=== PATIENT | male | born 1950 | race Caucasian/White ===

== ENCOUNTER 2019-06-05 21:56 | Inpatient (IN) | payer MEDICARE ==
[~2019-06-05] VITALS: Ht 182.9 cm; Wt 99.6 kg
--- NOTE | ~2019-06-05 | HEMODYNAMI ---
PATIENT:OSIRIS HECK MEDICAL RECORD: [id number] : 46 LOCATION:[address] ADMISSION DATE: 06/06/19 Generatedon:06/08/201912:02 Patient name: OSIRIS HECK Patient #: [id number] SSN: : 1950 Date of study: 06/08/2019 Page: Of Hemodynamic Procedure Report Patient Data Patient Demographics Procedure consent was obtained First Name: OSIRIS Gender: Male Last Name: MARIA R : 1950 Patient #: [id number] Age: 68 year(s) Race: Unknown Additional ID: [id number] Contact details Address: [address] [place] [address] State: [place] City: [place] Zip code: [address] Past Medical History Allergies: No known allergies Admission Admission Data Admission Date: 06/06/2019 Admission Time: 0:50 Room #: 210 Height (in.): 72 BSA: 2.26 (m2) Height (cm.): 182.88 BMI: 31.06 (kg/m2) Weight (lbs.): 229 Weight (kg.): 103.87 Procedure Procedure Types Cath Procedure Peripheral Cath Diagnostic Procedure Patient Registration Clerk Peripheral Procedures Venography IVC/SVC Inferior Venacava Filter Procedure Description Procedure Date Procedure Date: 06/08/2019 Procedure Start Time: 11:32 Procedure Staff Name Function Marty Worley MD Performing Physician Jessica Barron RT Senior Process Control Tech Jocelyne Obrien RN Nurse Rafal Fernandez RT Scrub Procedure Data Cath Procedure Fluoroscopy Diagnostic fluoroscopy Total fluoroscopy Time: 1.2 time: 1.2 min min Diagnostic fluoroscopy Total fluoroscopy dose: 251 dose: 251 mGy mGy Contrast Material Contrast Material Type Amount (ml) Isovue 300 35 Diagnostic catheters Device Type Used For End Catheter Placement [facility] Pigtail VESSEL SIZING 5Fr 65CM catheter ([id number]) Procedure Medications Medication Administration Route Dosage Heparin Flush Bag added to field 2 bags (1000units/500ml NS) Lidocaine 1% added to field 20 Benadryl I.V. 25 mg Fentanyl I.V. 50 mcg Fentanyl I.V. 50 mcg Hemodynamics Rest BSA: 2.26 (m2) O2 Consumption: Estimated: 275.24 (ml/min) O2 Consumption indexed : Estimated:121.79 (ml/min/m) Heart Rate: 86 (bpm) Snapshots Pre Cath Intra NCS Post Cath Vital Signs Time Heart Resp SPO2 etCO2 NIBP (mmHg) Rhythm Pain Sedation Rate (ipm) (%) (mmHg) Status Level (bpm) 11:13:00 81 24 97 14.8 126/80(95) NSR 0 (11) 10(A) , No pain 11:17:08 85 24 98 10.4 121/88(97) NSR 0 (11) 10(A) , No pain 11:21:18 88 24 97 0 125/76(99) NSR 0 (11) 10(A) , No pain 11:25:28 84 28 98 0.7 123/81(97) NSR 0 (11) 10(A) , No pain 11:29:38 83 26 98 17.1 123/78(92) NSR 0 (11) 10(A) , No pain 11:33:46 85 23 98 13.4 127/81(101) NSR 0 (11) 10(A) , No pain 11:37:57 83 18 96 11.9 128/75(98) NSR 0 (11) 10(A) , No pain 11:42:07 90 18 97 10.4 124/85(96) NSR 0 (11) 10(A) , No pain 11:46:17 83 18 97 0 125/80(96) NSR 0 (11) 10(A) , No pain 11:50:27 83 18 99 0 122/80(96) NSR 0 (11) 10(A) , No pain 11:54:35 83 20 97 7.4 123/82(101) NSR 0 (11) 10(A) , No pain 11:58:43 89 20 99 0 127/81(98) NSR 0 (11) 10(A) , No pain Medications Time Medication Route Dose Verified Delivered Reason Notes Effe ctiveness by by 11:14:25 Heparin Flush added 2 Marty Ferguson used for Bag to bags Brunilda Worley MD procedure (1000units/500ml field PARKER NS) 11:14:37 Lidocaine 1% added 20ml Marty Ferguson for local to vial Brunilda Worley MD anesthetic field PARKER 11:22:47 Benadryl I.V. 25 mg Marty Casanova Per Micah Worley RN physician 11:26:34 Fentanyl I.V. 50 Marty Casanova Per mcg Micah Worley RN physician 11:38:03 Fentanyl I.V. 50 Marty Casanova Per mcg Micah Worley RN physician Procedure Log Time Note 10:30:42 Patient Height : 72 inches 10:30:53 Patient Weight : 229 lbs 10:32:27 Use device set IR Diagnostic 10:33:03 Micropuncture VSI 4FR kit opened to sterile field. 10:33:06 DOC .035 wire (H52190) opened to sterile field. 10:33:07 Tegaderm 4 x 4 (1626W) opened to sterile field. 10:33:08 Sterile Angiographic Pack opened to sterile field. 10:33:08 Bag Decanter (2002S) opened to sterile field. 10:33:09 ACIST Manifold (48369) opened to sterile field. 10:33:10 ACIST Hand Control (40803) opened to sterile field. 10:33:11 ACIST Syringe (21670) opened to sterile field. 11:01:54 - 11:01:58 Time tracking: Regular hours (M-F 7:00 - 5:00) 11:02:16 Plan of Care:Hemodynamics will remain stable., Cardiac rhythm will remain stable., Comfort level will be maintained., Respiratory function will remain adequate., Patient/ family verbilizes understanding of procedure., Procedure tolerated without complication., Recovers from procedure without complications.. 11:03:09 Patient received from Med II to IR Alert and oriented. Tansferred to table in Supine position. 11:03:11 Signed procedure consent form obtained from patient. 11:03:17 H&P Date Dictated: 06/08/2019 Within 30 days and on chart.. 11:03:19 Pre-procedure instructions explained to patient. 11:03:20 Pre-op teaching completed and patient verbalized understanding. 11:03:22 Family in waiting room. 11:03:24 Patient NPO since Breakfast. 11:03:35 Patient allergic to No known allergies 11:03:39 Is the patient allergic to Iodine/contrast media? No. 11:03:43 Is patient on blood thinner?Yes 11:03:49 ACC The patient was administered the following blood thiners within the last 24 hours: ACCHeparin 11:03:52 Patient diabetic? No. 11:03:56 - 11:03:58 ----Pre-sedation anethsthesia assessment.---- 11:04:03 Previous problem with sedation/anesthesia? No ? 11:04:08 Snore? Yes 11:04:13 Sleep apnea? No 11:04:15 Deviated septum? No 11:04:18 Opens mouth fully? Yes 11:04:20 Sticks out tongue? Yes 11:04:23 Airway obstruction? No ? 11:04:33 Dentures? Yes secured 11:04:44 IV patent on arrival in right forearm with D5/.45%NaCl at KVO. 11:04:54 Right neck area was prepped with chlora-prep and draped in sterile fashion 11:04:57 - 11:11:56 Vital chart was started 11:11:57 Baseline sample Acquired. 11:14:25 Heparin Flush Bag (1000units/500ml NS) 2 bags added to field was administered by Marty Worley MD; used for procedure; Verbal order read back and verified. 11:14:37 Lidocaine 1% 20ml vial added to field was administered by Marty Worley MD; for local anesthetic; Verbal order read back and verified. 11:22:47 Benadryl 25 mg I.V. was administered by Jocelyne Obrien RN; Per physician ; Verbal order read back and verified. 11:26:17 TUBING Contrast Injection High Pressure ([id number]) opened to sterile field. 11:26:34 Fentanyl 50 mcg I.V. was administered by Jocelyne Obrien RN; Per physician; Verbal order read back and verified. 11:31:20 A [employer] [facility] Pigtail VESSEL SIZING 5Fr 65CM catheter ([id number]) was advanced over the wire and used for . 11:32:07 - 11:32:12 Physician arrived 11:32:12 --------ALL STOP TIME OUT------ 11:32:13 Final Timeout: patient, procedure, and site verified with staff and physician. All members of the team are in agreement. :34 Procedure started. ::34 Full Disclosure recording started 11:32:42 Local anesthetic to right IJ vein with Lidocaine 1% by Marty Worley MD.INITIAL ACCESS ONLY 11:32:45 - 11:32:56 Fire Safety Assessment: A--An alcohol-based skin anteseptic being used preoperatively., C--Open oxygen or nitrous oxide is being used. 11:33:03 3a) 45-59 Moderately reduced kidney function. 11:38:03 Fentanyl 50 mcg I.V. was administered by Jocelyne Obrien RN; Per physician; Verbal order read back and verified. 11:46:55 AMPLATZ Super stiff 180cm wire ([id number]) opened to sterile field. 11:49:32 FILTER Lesli Jugular Vena Cava (TG981P) opened to sterile field. 11:49:43 Venogram performed 11:49:44 Venogram performed 11:49:50 [place] Jugular IVC filter was placed below renal veins. 11:54:05 Procedure ended.(Physican Out) 11:54:36 Fluoroscopy time 01.20 minutes. 11:54:42 Fluoroscopy dose: 251 mGy 11:54:42 Flurop Dose total: 251 11:54:49 Contrast amount:Isovue 300 35ml. 11:54:52 Procedure and supply charges have been captured, reviewed, submitted an d are correct. 11:55:31 Report given to ActionPlanner. 12:02:27 Vital chart was stopped Device Usage Item Name Manufacture Quantity Catalog Hospital Part Current Minima l Lot# / Number Charge Number Stock Stock Serial# Code Micropuncture VSI VASCULAR 1 7266V 013736 039943 5 VSI 4FR kit SOLUTIONS DOC .035 wire Cook Medical 1 [id number] 970069 149845 5 ([id number]) Tegaderm 4 x 3M 1 1626W 698568 023838 782405 5 4 (1626W) Sterile Cardinal 1 [id number] 068675 812126 5 Angiographic Health Pack Bag Decanter Microtek 1 2001S 243485 51422 906160 5 (2001S) Medical Inc. ACIST Acist 1 63232 870331 863524 708015 5 Manifold Medical (89487) Systems Inc ACIST Hand Acist 1 73470 532524 654684 885091 5 Control Medical (11369) Systems Inc ACIST Syringe Acist 1 30926 824810 167892 509038 20 (08495) Medical Systems Inc TUBING [facility] 1 JOK442P 173964 252932 355519 5 Contrast Medical Injection High Pressure (EYZ713O) Merit UHF Merit 1 7602-20M65 356506 162972 5 Pigtail Medical VESSEL SIZING 5Fr 65CM catheter ([id number]) AMPLATZ Super Harper 1 [id number] 506466 761994 829693 5 stiff 180cm Scientific wire ([id number]) FILTER [place] Bard 1 DE835N 406828 617442 347213 5 Jugular Vena Cava (SI241H) Signature Audit [place] Stage Time Signature Unsigned Intra-Procedure 06/08/2019 Jessica Barron 12:02:24 PM RT(R) [address] [address] [place] [address]
[2019-06-05] MEDS ORDERED: ZYLOPRIM100 MG PO (22:28)
[2019-06-05] MEDS ORDERED: PLAVIX75 MG PO (22:28)
[2019-06-05] MEDS ORDERED: [UNRECOGNIZED DRUG - REMARK] (22:28)
[2019-06-05] MEDS ORDERED: PROTONIX40 MG PO (22:29)
[2019-06-05 22:31] LABS: BASOPHILS 0.1 % (0-2); EOSINOPHILS 0.2 % (0-7); HEMATOCRIT 36.3 % (42.0-54.0); HEMOGLOBIN 11.4 g/dL (13.5-17.5); IMMATURE GRANULOCYTES 0.3 % (0-5); LYMPHOCYTES 13.2 % (15-50); MCH 29.9 pg (26.0-34.0); MCHC 31.4 g/dL (31.0-37.0); MCV 95.3 fL (80.0-100.0); MONOCYTES 10.2 % (2-11); PLATELET COUNT 234 10x3/uL (130-400); RBC 3.81 10x6/uL (4.20-6.10); RDW 18.3 % (11.5-14.5); WBC 9.8 10x3/uL (4.8-10.8)
[2019-06-05 22:44] LABS: CALC OSMOLALITY 279 mosm/kg (275-300); CALCIUM 8.7 mg/dL (8.5-10.1); CARBON DIOXIDE 26.1 mmol/L (21.0-32.0); CHLORIDE - SERUM 102 mmol/L (98-107); CREATININE - SERUM 1.2 mg/dL (0.6-1.3); GLUCOSE 122 mg/dL (74-106); POTASSIUM - SERUM 4.2 mmol/L (3.5-5.1); SODIUM 138 mmol/L (136-145); UREA NITROGEN 22 mg/dL (7-18); eGFR NON AFRICAN AMERICAN 64 mL/min (90-120)
--- NOTE | 2019-06-05 22:52 | NUR ---
US TO ROOM AT PRESENT
[2019-06-05 22:53] VITALS: BP 140/94
[2019-06-05 22:57] LABS: APTT 31.8 SECONDS (22.8-39.4); INR 1.37 (0.85-1.17); PROTIME 16.3 SECONDS (11.6-15.0)
[2019-06-05 23:04] LABS: ALBUMIN 2.6 g/dL (3.4-5.0); ALKALINE PHOSPHATASE 91 U/L (46-116); ALT (SGPT) 37 U/L (10-68); BILIRUBIN - TOTAL 0.49 mg/dL (0.2-1.3); CKMB 0.2 U/L (0.0-3.6); CREATINE KINASE 39 UL (21-232); D-DIMER-QUANTITATIVE 13.14 ug/mLFEU (0.20-0.54); PRO BNP 163 pg/mL (0-125); TROPONIN-I < 0.017 ng/mL (0.000-0.060); URIC ACID 5.3 mg/dL (2.6-7.2)
--- NOTE | 2019-06-05 23:13 | NUR ---
ULTRASOUND OUT OF PT ROOM. NO ACUTE DISTRESS NOTED AT PRESENT. FAMILY AT BEDSIDE
[2019-06-05 23:35] LABS: ERYTHROCYTE SEDIMENTATION RATE 68 mm/hr (0-20)
[2019-06-06] VITALS (7 sets, daily range): BP systolic 118–151; BP diastolic 77–94; BMI 31.7; BMI 31.6
[2019-06-06] MEDS ORDERED: MIRALAX17 GM PO (02:06)
--- NOTE | 2019-06-06 02:41 | NUR ---
PT ARRIVED TO FLOOR VIA [facility] WITH AND DUAGHTER. PT ALERT AND ORIENTED X4. RR EVEN AND UNLABORED. PT WASN'T ABLE TO TRANSFER ON OWN, WE THE STAFF TRANSFERED THE PT TO BED FROM [facility]. BOTH PT LEGS BILAT ARE SWOLLEN AND PAINFUL. PRN PAIN MED GIVEN. PT MEDS REC'D. NO TELEMETRY AVAILABLE AT THIS TIME. PT ARRIVED ON HEPARIN DRIP AT 13/HR. STARTING WITH A 5000UNIT BOLUS IN ER. PT RESTING COMFORTABLY AT THIS TIME WITH AT BEDSIDE. BED LOW CALL LIGHT WITHIN REACH. WILL CINTINUE TO MONITOR.
[2019-06-06 05:28] LABS: BASOPHILS 0.1 % (0-2); EOSINOPHILS 0.1 % (0-7); HEMATOCRIT 33.9 % (42.0-54.0); IMMATURE GRANULOCYTES 0.2 % (0-5); MCH 30.7 pg (26.0-34.0); MCHC 32.4 g/dL (31.0-37.0); MCV 94.7 fL (80.0-100.0); MEAN PLATELET VOLUME 9.4 fL (7.4-10.4); MONOCYTES 8.4 % (2-11); NEUTROPHILS 78.2 % (40-80); PLATELET COUNT 247 10x3/uL (130-400); RBC 3.58 10x6/uL (4.20-6.10); RDW 18.2 % (11.5-14.5); WBC 9.6 10x3/uL (4.8-10.8)
[2019-06-06 05:49] LABS: ALBUMIN 2.4 g/dL (3.4-5.0); BILIRUBIN - TOTAL 0.45 mg/dL (0.2-1.3); CALCIUM 8.7 mg/dL (8.5-10.1); CARBON DIOXIDE 25.2 mmol/L (21.0-32.0); CREATININE - SERUM 1.1 mg/dL (0.6-1.3); POTASSIUM - SERUM 4.2 mmol/L (3.5-5.1); PROTEIN - SERUM 6.7 g/dL (6.4-8.2)
--- NOTE | 2019-06-06 07:24 | NUR ---
PT RESTING PEACEUFLLY ON HIS BACK, BREATHS EVEN/REGULAR AND UNLABORED. NO SIGNS/SYMPTOMS OF ACUTE DISTRESS NOTED AT THIS TIME. 2 FAMILY MEMBERS AT BEDSIDE, BOTH AWAKE. NO COMPLAINTS OR CONCERNS STATED, ALL QUESTIONS ANSWERED TO THE BEST OF MY ABILITY. CL IN REACH, SRX2.
[2019-06-06 08:05] LABS: INR 1.35 (0.85-1.17); PROTIME 16.1 SECONDS (11.6-15.0)
[2019-06-06 08:11] LABS: APTT 76.3 SECONDS (22.8-39.4)
[2019-06-06 12:57] LABS: % SATURATION 8 % (15-55); IRON 12 ug/dl (35-150); TOTAL IRON BIND CAPACITY 141 ug/dl (260-445); UNSAT IRON BIND CAPACITY 129 ug/dl (150-375)
--- NOTE | 2019-06-06 14:22 | NUR ---
PT HAS BEEN RESTING PEACEUFLLY, ADMINISTERED PAIN MEDICATIONS ONE TIME PER HIS REQUEST. LEGS APPEAR NO SMALLER THAN PREVIOUSLY. NO COMPLAINTS OR CONCERNS AT THIS TIME. AT BEDSIDE. CL IN REACH, SRX2.
--- NOTE | 2019-06-06 17:28 | NUR ---
I have reviewed this patient and I concur with the Shift Assessment completed by the Licensed Practical Nurse today this shift.
--- NOTE | 2019-06-06 18:29 | NUR ---
PT RESTING PEACEFULLY. C/O PAIN IN HIS LEGS, BUT STATES IT'S NOT THAT BAD IF HE ISNT JOSTLED AROUND. NO COMPLAINTS, ANSWERED ALL QUESTIONS TO THE BEST OFMY ABILITY. CL IN REACH, SRX2.
--- NOTE | 2019-06-06 19:16 | NUR ---
EVENING ROUNDS COMPLETE. PT LAYING IN BED, C/O BEING TOO HOT. PT FEVER OF 101.8, PRN TYLENOL GIVEN, COVERS REMOVED. PT IS AAOX4, FAMILY AT BEDSIDE. NO S/S OF DISTRESS. CL IN REACH, BED IN LOWEST POSITION.
--- NOTE | 2019-06-06 22:34 | NUR ---
PT IV TO LAC INFILTRATED. D/C'D IV WITH TIP INTACT. PT TOLERATED WELL. NEW IV STARTED IN LFA 22G X2 ATTEMPTS. PT TOLERATED WELL. HEPARIN INFUSING AT 13 ML/HR.
[2019-06-07 04:52] VITALS: BP 117/74
[2019-06-07 04:52] LABS: BASOPHILS 0.1 % (0-2); EOSINOPHILS 0.1 % (0-7); HEMATOCRIT 33.6 % (42.0-54.0); HEMOGLOBIN 10.6 g/dL (13.5-17.5); IMMATURE GRANULOCYTES 0.2 % (0-5); LYMPHOCYTES 10.8 % (15-50); MCH 30.1 pg (26.0-34.0); MCHC 31.5 g/dL (31.0-37.0); MCV 95.5 fL (80.0-100.0); MEAN PLATELET VOLUME 9.3 fL (7.4-10.4); MONOCYTES 7.7 % (2-11); NEUTROPHILS 81.1 % (40-80); PLATELET COUNT 259 10x3/uL (130-400); RBC 3.52 10x6/uL (4.20-6.10); RDW 18.3 % (11.5-14.5); WBC 10.7 10x3/uL (4.8-10.8)
[2019-06-07 05:26] LABS: ALBUMIN 2.2 g/dL (3.4-5.0); ANION GAP 10.7 mmol/L (8-16); BILIRUBIN - TOTAL 0.5 mg/dL (0.2-1.3); CALCIUM 8.8 mg/dL (8.5-10.1); CARBON DIOXIDE 28.4 mmol/L (21.0-32.0); CREATININE - SERUM 1.1 mg/dL (0.6-1.3); POTASSIUM - SERUM 4.1 mmol/L (3.5-5.1); PROTEIN - SERUM 6.8 g/dL (6.4-8.2)
--- NOTE | 2019-06-07 07:12 | NUR ---
PT AWAKE AND ORIENTED, GROANING IN PAIN. PT STATES THAT EVER SINCE THE NIGH SHIFT CAHNGED HIS LINNENS AND CLEANED HIM UP, HIS LEFT LEG HAS HURT VERY BADLY. STATES PAIN IS BEHIND HIS LEFT KNEE AND THAT THE MORPHINE HE RECIEVED EARLIER DID NOT HELP MUCH IT USUALLY DOES. HE STATES IT IS A CRAMPING TYPE PAIN. WILL REPORT TO . NO OTHER CMPLAINTS OR CONCERNS, ALL QUESTIONS ANSWERED TO THE BEST OF MY ABILITY. DAUGHTER AT BEDSIDE, SON IN LAW IN ROOM. CL IN REACH, SRX2
[2019-06-07 07:58] VITALS: BP 133/84
--- NOTE | 2019-06-07 10:39 | NUR ---
20 GAUGE IV PLACED TO RIGHT WRIST X 1 STICK, GOOD BLOOD RETURN, EASY FLUSH. TAPED, DATED AND SECURED. PATIENT TOLERATED IV PLACEMENT WELL.
[2019-06-07 11:59] VITALS: BP 95/64
--- NOTE | 2019-06-07 13:50 | NUR ---
I have reviewed this patient and I concur with the Shift Assessment completed by the Licensed Practical Nurse today this shift.
--- NOTE | 2019-06-07 14:30 | NUR ---
REPOSTIONED PT, NOTABLE SMALL SORE DEVELOPING ON COXIX, BUTTOX IS GENERALIZED RED.
--- NOTE | 2019-06-07 15:12 | MORECARE ---
CASE MANAGEMENT DISCHARGE SUMMARY PATIENT: OSIRIS HECK UNIT: [id number] ADM DATE: 06/06/19 AGE: 68 : 48 SEX: M ROOM/BED: D.2101 AUTHOR: MANDY CHEN PHYSICIAN: REFERRING PHYSICIAN: JANES CARREON MD DATE OF SERVICE: 06/07/19 Discharge Plan Patient Name: OSIRIS HECK Facility: [facility]:[place] : 1950 Planned Disposition: Anticipated Discharge Date: Discharge Date: Expected LOS: Initial Reviewer: [email or web address] Initial Review Date: 06/07/2019 Generated: 06/07/19 4:12 pm Comments DCP- Discharge Planning Updated by [email or web address]: Carleen Hawkins on 06/07/19 2:[address] Patient Name: OSIRIS HECK Admission Status: ER Accout number: [id number] Admission Date: 06-06-2019 : 1950 Admission Diagnosis: Attending: JANES COREAS Current LOS: 1 Anticipated DC Date: Planned Disposition: Primary Insurance: HU[employer]NA CHOICE PPO MCR ADVANT Discharge Planning Comments: CM met with patient at bedside after explaining CM role and obtaining verbal consent. I SPOKE WITH PATIENT AND HIS NAA. PLAN IS FOR SNF AT [facility]. CURRENTLY HAS [facility] BUT THINKS HE NEEDS SNF. CM TO FOLLOW AND ASSIST. And Taxi Instructor Bus Trolley: Carleen Hawkins DCPIA - Discharge Planning Initial Assessment Updated by [email or web address]: Carleen Hawkins on 06/07/19 3:10 pm * Is the patient Alert and Oriented? Yes * PCP [facility] * Pharmacy [facility] * Preadmission Environment Home with Family * ADLs Independent * Other Equipment WALKER * Community resources currently utilized Home Health * Please name any agencies selected above. [facility] [place] * Additional services required to return to the preadmission environment? No * Can the patient safely return to the preadmission environment? Yes * Has this patient been hospitalized within the prior 30 days at any hospital? No Patient Name: OSIRIS HECK Page 74731 at 1512 All edits/amendments must be made on the electronic document DICTATION DATE: 06/07/191511 INTEGRATION ANALYST: OPAL 06/07/191511 RPT#: [id number] DC DATE: STATUS: ADM IN [facility] [address] [place] [address] END OF REPORT
--- NOTE | 2019-06-07 15:20 | MORECARE ---
CASE MANAGEMENT DISCHARGE SUMMARY PATIENT: OSIRIS EHCK UNIT: [id number] ADM DATE: 06/06/19 AGE: 68 : 48 SEX: M ROOM/BED: D.2101 AUTHOR: APRIL,DOC PHYSICIAN: REFERRING PHYSICIAN: JANES CARREON MD DATE OF SERVICE: 06/07/19 Discharge Plan Patient Name: OSIRIS HECK Facility: [facility]:[place] : 1950 Planned Disposition: Anticipated Discharge Date: Discharge Date: Expected LOS: Initial Reviewer: [email or web address] Initial Review Date: 06/07/2019 Generated: 06/07/19 4:19 pm Comments DCP- Discharge Planning Updated by [email or web address]: Carleen Hawkins on 06/07/19 2:[address] Patient Name: OSIRIS HECK Admission Status: ER Accout number: [id number] Admission Date: 06-06-2019 : 1950 Admission Diagnosis: Attending: JANES COREAS Current LOS: 1 Anticipated DC Date: Planned Disposition: Primary Insurance: HUMANA CHOICE PPO MCR ADVANT Discharge Planning Comments: CM met with patient at bedside after explaining CM role and obtaining verbal consent. I SPOKE WITH PATIENT AND HIS NAA. PLAN IS FOR SNF AT [facility]. CURRENTLY HAS [facility] BUT THINKS HE NEEDS SNF. CM TO FOLLOW AND ASSIST. Chief Executive Or Managing Director: Carleen Hawkins DCPIA - Discharge Planning Initial Assessment Updated by [email or web address]: Carleen Hawkins on 06/07/19 3:13 pm * Is the patient Alert and Oriented? Yes * PCP [facility] * Pharmacy [facility] * Preadmission Environment Home with Family * ADLs Independent * Other Equipment WALKER * List name and contact numbers for known caregivers / representatives who currently or will assist patient after discharge: NAA, , * Community resources currently utilized Home Health * Please name any agencies selected above. [facility] [place] * Additional services required to return to the preadmission environment? No * Can the patient safely return to the preadmission environment? Yes * Has this patient been hospitalized within the prior 30 days at any hospital? No Coverage Notice Reviewer: [email or web address] - Carleen Hawkins Notice Issued Date-Time: 06/07/2019 15:13 Notice Type: Patient Choice Letter Notice Delivered To: Family Member Relationship to Patient: Spouse Dispatcher Service Name: NAA Delivery Method: HAND - Hand Delivered Em Days: Prior Verbal Notification: Recipient Understood Notice: Yes Recipient Signature: Yes Med Rec Note Co-signed by Attending: Coverage Notice Comment: [facility] DP export: 06/07/19 2:12 Patient Name: OSIRIS HECK Page 03958 at 1520 All edits/amendments must be made on the electronic document DICTATION DATE: 06/07/191518 MAINTENANCE DEPARTMENT TECHNICIAN: OPAL 06/07/191518 RPT#: [id number] DC DATE: STATUS: ADM IN [facility] [address] [place] [address] END OF REPORT
[2019-06-07 20:25] VITALS: BP 111/70
--- NOTE | 2019-06-07 22:45 | NUR ---
CALLED TO ROOM, PT C/O LEG SPASMS, ZANAFLEX AND TYLENOL GIVEN. PT DENIES OTHER NEEDS, FAMILY AT BED SIDE.
[2019-06-08 00:45] VITALS: BP 90/62
--- NOTE | 2019-06-08 02:50 | NUR ---
I have reviewed this patient and I concur with the Shift Assessment completed by the Licensed Practical Nurse today this shift.
--- NOTE | 2019-06-08 03:43 | NUR ---
RESTING WITH EYES CLOSED, RESPERATIONS EVEN, NO S/S DISTRESS NOTED.
[2019-06-08 04:06] LABS: BASOPHILS 0.2 % (0-2); EOSINOPHILS 0 % (0-7); HEMOGLOBIN 9.7 g/dL (13.5-17.5); IMMATURE GRANULOCYTES 0.3 % (0-5); MCH 30.7 pg (26.0-34.0); MCHC 32.3 g/dL (31.0-37.0); MCV 94.9 fL (80.0-100.0); MEAN PLATELET VOLUME 9.5 fL (7.4-10.4); MONOCYTES 7.8 % (2-11); NEUTROPHILS 78.7 % (40-80); PLATELET COUNT 247 10x3/uL (130-400); RBC 3.16 10x6/uL (4.20-6.10); WBC 10.1 10x3/uL (4.8-10.8)
[2019-06-08 04:29] LABS: ALBUMIN 1.9 g/dL (3.4-5.0); ANION GAP 12.1 mmol/L (8-16); BILIRUBIN - TOTAL 0.46 mg/dL (0.2-1.3); CALCIUM 8.8 mg/dL (8.5-10.1); CARBON DIOXIDE 28.3 mmol/L (21.0-32.0); CREATININE - SERUM 1.3 mg/dL (0.6-1.3); MAGNESIUM - SERUM 2.2 mg/dL (1.8-2.4); POTASSIUM - SERUM 4.4 mmol/L (3.5-5.1); PROTEIN - SERUM 6.5 g/dL (6.4-8.2)
[2019-06-08 04:30] VITALS: BP 95/64
--- NOTE | 2019-06-08 07:25 | NUR ---
ALERT AND ORIENTED. TELEMERTY SHOWSSR 74. IV TO LEFT FA WITH HEPARIN AT14, RIGHT FA SL PATENT. FEETS ARE RED BILATERAL. EDEMA TO LOWER LEGS . NO COMPLAINTS AT PRESENT TIME. FAMILY AT BEDSIDE.
[2019-06-08 09:00] VITALS: BP 107/66
[2019-06-08 10:25] VITALS: Ht 182.9 cm; Wt 99.6 kg
--- NOTE | 2019-06-08 10:46 | NUR ---
PRT TAKEN TO SPECIALS
--- NOTE | 2019-06-08 13:26 | NUR ---
BACK FROM IR. V/S STABLE TELEMERTY SHOWIN NSR. DRSG TO RIGHT SIDE OF NECK CLEAN AND DRY. WILL MONITOR. SR UP WITH FAMILY AT [facility]
[2019-06-08 14:38] VITALS: BP 121/77
--- NOTE | 2019-06-08 15:51 | NUR ---
JEFFRY CANTU TRIED TO CALL SPECIALS TO SEE ABOUT RESTARTING HEPARIN DRIP THERE ARE NO ORDERS TO CONTINUE OR NOT. NO ANSWER. I CALLED SADE VASQUEZ RN WITH IR AND HE SAID TO RE-START IT AND ORDER PTT IN 6 HOURS. HE WILL VERIFY THIS WITH IR AND LET US KNOW IF ANY NEW ORDERS. HEPRIN DRIP STARTED PER Xiomara IGLESIAS LPN.
--- NOTE | 2019-06-08 17:18 | MORECARE ---
CASE MANAGEMENT DISCHARGE SUMMARY PATIENT: OSIRIS HECK UNIT: [id number] ADM DATE: 06/06/19 AGE: 68 : 48 SEX: M ROOM/BED: D.2101 AUTHOR: APRILDOC PHYSICIAN: REFERRING PHYSICIAN: JANES CARREON MD DATE OF SERVICE: 06/08/19 Discharge Plan Patient Name: OSIRIS HECK Facility: [facility]:[place] : 1950 Planned Disposition: Long Term Facility Anticipated Discharge Date: Discharge Date: Expected LOS: Initial Reviewer: [email or web address] Initial Review Date: 06/07/2019 Generated: 06/08/19 6:17 pm DCP- Discharge Planning Updated by [email or web address]: Carleen Hawkins on 06/07/19 2:[address] Patient Name: OSIRIS HECK Admission Status: ER Accout number: [id number] Admission Date: 06-06-2019 : 1950 Admission Diagnosis: Attending: JANES COREAS Current LOS: 1 Anticipated DC Date: Planned Disposition: Primary Insurance: HU[employer]NA CHOICE PPO MCR ADVANT Discharge Planning Comments: CM met with patient at bedside after explaining CM role and obtaining verbal consent. I SPOKE WITH PATIENT AND HIS NAA. PLAN IS FOR SNF AT [facility]. CURRENTLY HAS [facility] BUT THINKS HE NEEDS SNF. CM TO FOLLOW AND ASSIST. Production Supervisor Trainee: Carleen Hawkins DCPIA - Discharge Planning Initial Assessment Updated by [email or web address]: Carleen Hawkins on 06/07/19 3:13 pm * Is the patient Alert and Oriented? Yes * PCP [facility] * Pharmacy [facility] * Preadmission Environment Home with Family * ADLs Independent * Other Equipment WALKER * List name and contact numbers for known caregivers / representatives who currently or will assist patient after discharge: NAA, , * Community resources currently utilized Home Health * Please name any agencies selected above. [facility] [place] * Additional services required to return to the preadmission environment? No * Can the patient safely return to the preadmission environment? Yes * Has this patient been hospitalized within the prior 30 days at any hospital? No [facility] Next Contact Date: 06/08/2019 Service Request Date: Service Type: Resolution: Reviewer: Comments: Coverage Notice Reviewer: [id number] - Carleen Hawkins Notice Issued Date-Time: 06/07/2019 15:13 Notice Type: Patient Choice Letter Notice Delivered To: Family Member Relationship to Patient: Spouse Cook Short Order Name: NAA Delivery Method: HAND - Hand Delivered Em Days: Prior Verbal Notification: Recipient Understood Notice: Yes Recipient Signature: Yes Med Rec Note Co-signed by Attending: Coverage Notice Comment: [facility] CURRENT [facility] DP export: 06/07/19 2:20 Patient Name: OSIRIS HECK Page 10606 at 1718 All edits/amendments must be made on the electronic document DICTATION DATE: 06/08/191716 DUMBWAITER OPERATOR: OPAL 06/08/191716 RPT#: [id number] DC DATE: STATUS: ADM IN [facility] [address] [place] [address] END OF REPORT
--- NOTE | 2019-06-08 17:27 | MORECARE ---
CASE MANAGEMENT DISCHARGE SUMMARY PATIENT: OSIRIS HECK UNIT: [id number] ADM DATE: 06/06/19 AGE: 68 : 48 SEX: M ROOM/BED: D.2101 AUTHOR: APRILDOC PHYSICIAN: REFERRING PHYSICIAN: JANES CARREON MD DATE OF SERVICE: 06/08/19 Discharge Plan Patient Name: OSIRIS HECK Facility: [facility]:[place] : 1950 Planned Disposition: Half-Way Facility Anticipated Discharge Date: Discharge Date: Expected LOS: Initial Reviewer: [id number] Initial Review Date: 06/07/2019 Generated: 06/08/19 6:26 pm Comments DCP- Discharge Planning Updated by [id number]: Antonio Valdez on 06/08/19 4:[address] Patient Name: OSIRIS HECK Encounter No: [id number] : 1950 Primary Insurance: [employer]NA CHOICE PPO MCR ADVANT Anticipated DC Date: Planned Disposition: Half-Way Facility External Planned Provider: [facility], MEDICARE REHAB BED DCP follow-up note: CM FAXED REFERRAL TO [facility] AT [phone]. CM TO FOLLOW UP WITH ADMISSIONS AT [facility] ON 06-09-19 AT [phone]. CM WAITING ADMISSION DETERMINATION FROM [facility] AND [facility]. TEJAS Mcclain DCP- Discharge Planning Updated by [email or web address]: Carleen Hawkins on 06/07/19 2:[address] Patient Name: OSIRIS HECK Admission Status: ER Accout number: [id number] Admission Date: 06-06-2019 : 1950 Admission Diagnosis: Attending: JANES COREAS Current LOS: 1 Anticipated DC Date: Planned Disposition: Primary Insurance: HUMANA CHOICE PPO MCR ADVANT Discharge Planning Comments: CM met with patient at bedside after explaining CM role and obtaining verbal consent. I SPOKE WITH PATIENT AND HIS NAA. PLAN IS FOR SNF AT [facility] IN [facility]. CURRENTLY HAS [facility] BUT THINKS HE NEEDS SNF. CM TO FOLLOW AND ASSIST. Communications Associate: Carleen Hawkins DCPIA - Discharge Planning Initial Assessment Updated by [email or web address]: Carleen Hawkins on 06/07/19 3:13 pm * Is the patient Alert and Oriented? Yes * PCP [facility] * Pharmacy [facility] * Preadmission Environment Home with Family * ADLs Independent * Other Equipment WALKER * List name and contact numbers for known caregivers / representatives who currently or will assist patient after discharge: VALENTINO JACOME, * Community resources currently utilized Home Health * Please name any agencies selected above. [facility] * Additional services required to return to the preadmission environment? No * Can the patient safely return to the preadmission environment? Yes * Has this patient been hospitalized within the prior 30 days at any hospital? No Coverage Notice Reviewer: [id number] - Carleenpascual Hawkins Notice Issued Date-Time: 06/07/2019 15:13 Notice Type: Patient Choice Letter Notice Delivered To: Family Member Relationship to Patient: Spouse Vice President Lending Name: NAA Delivery Method: HAND - Hand Delivered Em Days: Prior Verbal Notification: Recipient Understood Notice: Yes Recipient Signature: Yes Med Rec Note Co-signed by Attending: Coverage Notice Comment: [facility] CURRENT WITH [facility] Last DP export: 06/08/19 4:18 Patient Name: OSIRIS HECK Page 21408 at 1727 All edits/amendments must be made on the electronic document DICTATION DATE: 06/08/191725 AFTER SCHOOL TEACHER: OPAL 06/08/191725 RPT#: [id number] DC DATE: STATUS: ADM IN [facility] [address] [place] [address] END OF REPORT
[2019-06-08 17:51] VITALS: BP 113/65
[2019-06-08 18:18] LABS: APPEARANCE CLEAR (CLEAR); BILIRUBIN NEGATIVE (NEGATIVE); COLOR YELLOW (YELLOW); GLUCOSE NEGATIVE (NEGATIVE); KETONE NEGATIVE (NEGATIVE); NITRITE NEGATIVE (NEGATIVE); PROTEIN TRACE mg/dL (NEGATIVE); SPECIFIC GRAVITY 1.015 (1.005-1.020); UROBILINOGEN NORMAL (NORMAL)
--- NOTE | 2019-06-08 19:30 | NUR ---
A&O X 4. DRESSING TO RIGHT SIDE OF NECK C/D/I. PT DENIES PAIN AT THIS TIME. TRANSFERED TO 1ST STEP OVERLAY BED. LINENS CHANGED. SWELLING TO LOWER EXTREMITIES NOTED. IV TO RIGHT FOREARM PATENT AND SALINE LOCKED. HEPARIN DRIP INFUSING AT 13 TO LEFT FOREARM. DENIES FURTHER NEEDS AT THIS TIME, WILL CONTINUE TO MONITOR CLOSELY.
[2019-06-08 20:38] VITALS: BP 95/57
[2019-06-09 00:46] VITALS: BP 103/61
--- NOTE | 2019-06-09 02:56 | NUR ---
I have reviewed this patient and I concur with the Shift Assessment completed by the Licensed Practical Nurse today this shift.
[2019-06-09 04:23] VITALS: BP 105/75
[2019-06-09 06:05] LABS: BASOPHILS 0.1 % (0-2); EOSINOPHILS 0.1 % (0-7); HEMATOCRIT 30.4 % (42.0-54.0); HEMOGLOBIN 9.6 g/dL (13.5-17.5); IMMATURE GRANULOCYTES 0.2 % (0-5); LYMPHOCYTES 12.4 % (15-50); MCH 29.7 pg (26.0-34.0); MCHC 31.6 g/dL (31.0-37.0); MCV 94.1 fL (80.0-100.0); MEAN PLATELET VOLUME 9.7 fL (7.4-10.4); MONOCYTES 7.1 % (2-11); NEUTROPHILS 80.1 % (40-80); PLATELET COUNT 244 10x3/uL (130-400); RBC 3.23 10x6/uL (4.20-6.10); RDW 17.8 % (11.5-14.5); WBC 8.5 10x3/uL (4.8-10.8)
[2019-06-09 06:29] LABS: ALBUMIN 1.8 g/dL (3.4-5.0); ANION GAP 12.7 mmol/L (8-16); BILIRUBIN - TOTAL 0.27 mg/dL (0.2-1.3); CALCIUM 8.8 mg/dL (8.5-10.1); CARBON DIOXIDE 26.6 mmol/L (21.0-32.0); CREATININE - SERUM 1.1 mg/dL (0.6-1.3); MAGNESIUM - SERUM 2.2 mg/dL (1.8-2.4); POTASSIUM - SERUM 4.3 mmol/L (3.5-5.1); PROTEIN - SERUM 6.5 g/dL (6.4-8.2)
--- NOTE | 2019-06-09 07:00 | NUR ---
RECEIVED REPORT AT BEDSIDE. ASSUMED CARE OF PATIENT. HEPARIN ADJUSTED TO 15 UNITS PER HOUR AT THIS TIME. RESP EVEN AND UNLABORED. NO DISTRESS. CALL LIGHT WITHIN REACH.
[2019-06-09 07:46] VITALS: BP 106/66
[2019-06-09 10:10] LABS: PSA - % FREE 23.3 % (()); PSA - FREE 0.49 ng/mL; PSA - TOTAL 2.1 ng/mL (0.0-4.0)
[2019-06-09 11:23] VITALS: BP 110/66
--- NOTE | 2019-06-09 11:35 | NUR ---
MEDICATED FOR PAIN AT THIS TIME WITH TYLENOL. NO DISTRESS. CALL LIGHT WITHIN REACH.
--- NOTE | 2019-06-09 12:57 | NUR ---
Nutrition Follow-up: S/p IVC filter placement on 06/08. Reports fair appetite. Agreed to try Boost with meals. 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 Diet: Cardiac PO intake: 46% avg x 6 meals Wt: 229.3# Labs noted: Glu 135, Alb 1.8 Meds noted: Miralax -+Boost with meals -Rec considering appetite stimulant if PO intake remains poor. -RD following.
--- NOTE | 2019-06-09 14:15 | NUR ---
LAB CALLED WITH CRITICAL PTT > 200. LAB GREYSON ABOVE THE IV SITE INFUSING HEPARIN. REQUESTED LAB COME AND REDRAW HEPARIN LEVEL. HEPARIN IS OFF AT THIS TIME UNTIL LEVEL IS REDRAWN FOR VERIFICATION PURPOSES.
[2019-06-09 15:26] VITALS: BP 104/61
--- NOTE | 2019-06-09 15:37 | NUR ---
DUE TO HEPARIN BEING OFF FOR AT LEAST 30 MINUTES BEFORE LAB CAME AND GREYSON PTT, LAB RESULT IS NOW 48.1. HEPARIN TURNED BACK ON AND IS INFUSING AT SAME RATE BEFORE DUE TO THE ERROR THE LAB MADE WHEN THEY GREYSON THE PTT THIS AFTERNOON. ORDERS PLACED FOR PTT LAB TO BE DRAWN AT 2130.
--- NOTE | 2019-06-09 19:10 | NUR ---
REPORT RECEIVED, WILL CONTINUE POC. PATIENT IS A&OX4, RESTING WITH EYES CLOSED UP ENTERING ROOM, FAMILY AT BEDSIDE. NO S/S OF DISTRESS OBSERVED, RR EVEN AND UNLABORED ON ROOM AIR. IV TO RT FA SL, PATENT, DRSG C/D/I. IV TO LT FA, PATENT, INFUSING HEPARIN @15ML/HR. PATIENT DENIES NEEDS AT THIS TIME. CL IN REACH, BED LOCKED AND LOWERED. WILL CTM.
[2019-06-09 20:00] VITALS: BP 129/78
--- NOTE | 2019-06-09 21:51 | NUR ---
PTT 59.3 HEPARIN DRIP RATE ADJUSTED PER PROTOCOL. HEPARIN INFUSING @16ML/HR. REDRAW ORDERED FOR 0350.
[2019-06-10] VITALS: BP 111/69
--- NOTE | 2019-06-10 02:52 | NUR ---
I have reviewed this patient and I concur with the Shift Assessment completed by the Licensed Practical Nurse today this shift.
[2019-06-10 04:00] VITALS: BP 120/70
[2019-06-10 04:17] LABS: BASOPHILS 0.1 % (0-2); EOSINOPHILS 0.2 % (0-7); HEMATOCRIT 29.8 % (42.0-54.0); HEMOGLOBIN 9.4 g/dL (13.5-17.5); IMMATURE GRANULOCYTES 0.2 % (0-5); MCH 29.7 pg (26.0-34.0); MCHC 31.5 g/dL (31.0-37.0); MEAN PLATELET VOLUME 9.3 fL (7.4-10.4); MONOCYTES 7.1 % (2-11); NEUTROPHILS 78.4 % (40-80); PLATELET COUNT 256 10x3/uL (130-400); RBC 3.17 10x6/uL (4.20-6.10); RDW 17.5 % (11.5-14.5); WBC 8.2 10x3/uL (4.8-10.8)
[2019-06-10 04:27] LABS: ALBUMIN 1.7 g/dL (3.4-5.0); ALKALINE PHOSPHATASE 162 U/L (46-116); CALC OSMOLALITY 279 mosm/kg (275-300); CALCIUM 8.3 mg/dL (8.5-10.1); CARBON DIOXIDE 27.5 mmol/L (21.0-32.0); CHLORIDE - SERUM 103 mmol/L (98-107); GLUCOSE 137 mg/dL (74-106); MAGNESIUM - SERUM 2.1 mg/dL (1.8-2.4); POTASSIUM - SERUM 4.4 mmol/L (3.5-5.1); PROTEIN - SERUM 6.1 g/dL (6.4-8.2); SODIUM 137 mmol/L (136-145); UREA NITROGEN 24 mg/dL (7-18); eGFR NON AFRICAN AMERICAN 78 mL/min (90-120)
[2019-06-10 04:32] LABS: ALT (SGPT) 144 U/L (10-68)
--- NOTE | 2019-06-10 05:20 | NUR ---
PATIENT MEDICATED FOR MUSCLE SPASMS.
[2019-06-10 11:10] LABS: LUPUS - INTERPRETATION Comment: (()); LUPUS - THROMBIN TIME 15.1 sec (0.0-23.0); LUPUS - dRVVT 39.8 sec (0.0-47.0); PTT-LA 40.7 sec (0.0-51.9)
[2019-06-10 11:31] LABS: INR 1.27 (0.85-1.17); PROTIME 15.3 SECONDS (11.6-15.0)
--- NOTE | 2019-06-10 15:32 | NUR ---
OT NOTE: PT COMPLETED BED MOB TASKS WITH MAX A. PT COMPLETED SIT TO STANDS WITH MAX A. PT COMPLETED EOB SITTING WITH CGA. PT COMPLETED UE AROM AXS. PT C/O PAIN IN PATELLA. NURSING AWARE. THANK YOU, DAJUAN STAHL
[2019-06-10 15:50] VITALS: BP 112/69
--- NOTE | 2019-06-10 16:47 | MORECARE ---
CASE MANAGEMENT DISCHARGE SUMMARY PATIENT: OSIRIS HECK UNIT: [id number] ADM DATE: 06/06/19 AGE: 68 : 48 SEX: M ROOM/BED: D.2101 AUTHOR: ARPIL,DOC PHYSICIAN: REFERRING PHYSICIAN: JANES CARREON MD DATE OF SERVICE: 06/10/19 Discharge Plan Patient Name: OSIRIS HECK Facility: [facility]:[place] : 1950 Planned Disposition: Long-Term Facility Anticipated Discharge Date: Discharge Date: Expected LOS: Initial Reviewer: [id number] Initial Review Date: 06/07/2019 Generated: 06/10/19 5:46 pm Comments DCP- Discharge Planning Updated by [email or web address]: Antonio Valdez on 06/10/19 3:[address] Patient Name: OSIRIS HECK Encounter No: [id number] : 1950 Primary Insurance: HUMANA CHOICE PPO [facility] ADVANT Anticipated DC Date: Planned Disposition: Long-Term Facility External Planned Provider: TO BE DETERMINED DCP follow-up note: CM RECEIVED CALL FROM [facility], THEY CANNOT MEET PT'S NEEDS DUE TO [facility]. CM TO MEET WITH PT AND FAMILY SOON POSSIBLE TO DISCUSS OTHER ALF REHAB OPTIONS. Antonio Valdez CASE SETH DCP- Discharge Planning Updated by [email or web address]: Antonio Valdez on 06/08/19 4:[address] Patient Name: OSIRIS HECK Encounter No: [id number] : 1950 Primary Insurance: HUMANA [employer] PPO [facility] ADVANT Anticipated DC Date: Planned Disposition: Long-Term Facility External Planned Provider: [facility], MEDICARE REHAB BED DCP follow-up note: CM FAXED REFERRAL TO [facility] AT [phone]. CM TO FOLLOW UP WITH ADMISSIONS AT [facility] ON 06-09-19 AT [phone]. CM WAITING [facility] Antonio Valdez CASE MANAGEMENT DCP- Discharge Planning Updated by [email or web address]: Carleen Hawkins on 06/07/19 2:[address] Patient Name: OSIRIS HECK Admission Status: ER Accout number: [id number] Admission Date: 06-06-2019 : 1950 Admission Diagnosis: Attending: JANES COREAS Current LOS: 1 Anticipated DC Date: Planned Disposition: Primary Insurance: [employer]NA CHOICE PPO MCR ADVANT Discharge Planning Comments: CM met with patient at bedside after explaining CM role and obtaining verbal consent. I SPOKE WITH PATIENT AND HIS NAA. PLAN IS FOR SNF AT [facility] IN [place], [facility] SIGNED. CURRENTLY HAS [facility] BUT THINKS HE NEEDS SNF. CM TO FOLLOW AND ASSIST. Washing And Screening Plant Supervisor: Carleen Hawkins DCPIA - Discharge Planning Initial Assessment Updated by [email or web address]: Carleen Hawkins on 06/07/19 3:13 pm * Is the patient Alert and Oriented? Yes * PCP [facility] * Pharmacy [facility] * Preadmission Environment Home with Family * ADLs Independent * Other Equipment WALKER * List name and contact numbers for known caregivers / representatives who currently or will assist patient after discharge: VALENTINO JACOME, * Community resources currently utilized Home Health * Please name any agencies selected above. [facility] * Additional services required to return to the preadmission environment? No * Can the patient safely return to the preadmission environment? Yes * Has this patient been hospitalized within the prior 30 days at any hospital? No Coverage Notice Reviewer: [id number] - Carleen Hawkins Notice Issued Date-Time: 06/07/2019 15:13 Notice Type: Patient Choice Letter Notice Delivered To: Family Member Relationship to Patient: Spouse Home Care Physical Therapist Name: NAA Delivery Method: HAND - Hand Delivered Em Days: Prior Verbal Notification: Recipient Understood Notice: Yes Recipient Signature: Yes Med Rec Note Co-signed by Attending: Coverage Notice Comment: [facility] SN[facility] CURRENT [facility] Last DP export: 06/08/19 4:27 Patient Name: OSIRIS HECK Page 59525 at 1647 All edits/amendments must be made on the electronic document DICTATION DATE: 06/10/191645 GRAIN PICKER: OPAL 06/10/191645 RPT#: [id number] DC DATE: STATUS: ADM IN [facility] [address] [place] [address] END OF REPORT
--- NOTE | 2019-06-10 16:56 | MORECARE ---
CASE MANAGEMENT DISCHARGE SUMMARY PATIENT: OSIRIS HECK UNIT: [id number] ADM DATE: 06/06/19 AGE: 68 : 48 SEX: M ROOM/BED: D.2101 AUTHOR: APRIL,DOC PHYSICIAN: REFERRING PHYSICIAN: JANES CARREON MD DATE OF SERVICE: 06/10/19 Discharge Plan Patient Name: OSIRIS HECK Facility: [facility]:[place] : 1950 Planned Disposition: Halfway Facility Anticipated Discharge Date: Discharge Date: Expected LOS: Initial Reviewer: [id number] Initial Review Date: 06/07/2019 Generated: 06/10/19 5:56 pm Comments DCP- Discharge Planning Updated by [id number]: Antonio Valdez on 06/10/19 3:[address] Patient Name: OSIRIS HECK Encounter No: [id number] : 1950 Primary Insurance: HUMANA CHOICE PPO [facility] ADVANT Anticipated DC Date: Planned Disposition: Halfway Facility External Planned Provider: TO BE DETERMINED DCP follow-up note: CM RECEIVED CALL FROM [facility], THEY CANNOT MEET PT'S NEEDS DUE TO [facility] READMISSIONS. CM TO MEET WITH PT AND FAMILY SOON POSSIBLE TO DISCUSS OTHER [facility] RE[facility] OPTIONS. Antonio Valdez CASE SETH DCP- Discharge Planning Updated by [email or web address]: Antonio Valdez on 06/08/19 4:[address] Patient Name: OSIRIS HECK Encounter No: [id number] : 1950 Primary Insurance: HUMANA [employer] PPO [facility] ADVANT Anticipated DC Date: Planned Disposition: Halfway Facility External Planned Provider: [facility], MEDICARE REHAB BED DCP follow-up note: CM FAXED REFERRAL TO [facility] AT [phone]. CM TO FOLLOW UP WITH ADMISSIONS AT [facility] ON 06-09-19 AT [phone]. CM WAITING ADMISSION DET[facility]MINATION [facility] Antonio Valdez CASE MANAGEMENT DCP- Discharge Planning Updated by [id number]: Carleen Hawkins on 06/07/19 2:[address] Patient Name: OSIRIS HECK Admission Status: ER Accout number: [id number] Admission Date: 06-06-2019 : 1950 Admission Diagnosis: Attending: JANES COREAS Current LOS: 1 Anticipated DC Date: Planned Disposition: Primary Insurance: [employer] CHOICE PPO [employer] ADVANT Discharge Planning Comments: CM met with patient at bedside after explaining CM role and obtaining verbal consent. I SPOKE WITH PATIENT AND HIS NAA. PLAN IS FOR SNF AT [facility] IN [place], A[facility] PAUL[facility] SIGNED. CURRENTLY HAS [facility] BUT THINKS HE NEEDS SNF. CM TO FOLLOW AND ASSIST. Fry Cook: Carleen Hawkins DCPIA - Discharge Planning Initial Assessment Updated by [id number]: Carleen Hawkins on 06/07/19 3:13 pm * Is the patient Alert and Oriented? Yes * PCP [facility] * Pharmacy [facility] * Preadmission Environment Home with Family * ADLs Independent * Other Equipment WALKER * List name and contact numbers for known caregivers / representatives who currently or will assist patient after discharge: VALENTINO JACOME, * Community resources currently utilized Home Health * Please name any agencies selected above. [facility] * Additional services required to return to the preadmission environment? No * Can the patient safely return to the preadmission environment? Yes * Has this patient been hospitalized within the prior 30 days at any hospital? No Coverage Notice Reviewer: [id number] - Carleen Hawkins Notice Issued Date-Time: 06/07/2019 15:13 Notice Type: Patient Choice Letter Notice Delivered To: Family Member Relationship to Patient: Spouse Strip Machine Operator Name: NAA Delivery Method: HAND - Hand Delivered Em Days: Prior Verbal Notification: Recipient Understood Notice: Yes Recipient Signature: Yes Med Rec Note Co-signed by Attending: Coverage Notice Comment: [facility] SN[facility] CURRENT WITH [facility] Last DP export: 06/10/19 3:47 Patient Name: OSIRIS HECK Page 41870 at 1656 All edits/amendments must be made on the electronic document DICTATION DATE: 06/10/191655 CONCEPT ARTIST: OPAL 06/10/191655 RPT#: [id number] DC DATE: STATUS: ADM IN [facility] [address] [place] [address] END OF REPORT
--- NOTE | 2019-06-10 19:24 | NUR ---
EVENING ROUND COMPLETE. PT LAYING IN BED, FAMILY AT BEDSIDE. AAOX4. NO SIGNS OF DISTRESS. PT DENIES ANY NEEDS AT THIS TIME. CL IN REACH, BED IN LOWEST POSITION.
[2019-06-10 20:18] VITALS: BP 119/78
[2019-06-11] VITALS: BP 138/72
[2019-06-11 04:00] VITALS: BP 126/81
[2019-06-11 05:34] LABS: ALBUMIN 1.9 g/dL (3.4-5.0); ALKALINE PHOSPHATASE 173 U/L (46-116); ALT (SGPT) 283 U/L (10-68); CALC OSMOLALITY 280 mosm/kg (275-300); CALCIUM 8.7 mg/dL (8.5-10.1); CARBON DIOXIDE 26.7 mmol/L (21.0-32.0); CHLORIDE - SERUM 103 mmol/L (98-107); CREATININE - SERUM 0.9 mg/dL (0.6-1.3); GLUCOSE 95 mg/dL (74-106); MAGNESIUM - SERUM 1.9 mg/dL (1.8-2.4); PROTEIN - SERUM 6.8 g/dL (6.4-8.2); SODIUM 140 mmol/L (136-145); UREA NITROGEN 17 mg/dL (7-18); eGFR NON AFRICAN AMERICAN 89 mL/min (90-120)
[2019-06-11 05:43] LABS: BASOPHILS 0.4 % (0-2); EOSINOPHILS 0.5 % (0-7); HEMATOCRIT 34.9 % (42.0-54.0); HEMOGLOBIN 10.9 g/dL (13.5-17.5); IMMATURE GRANULOCYTES 0.2 % (0-5); LYMPHOCYTES 14.5 % (15-50); MCH 29.4 pg (26.0-34.0); MCHC 31.2 g/dL (31.0-37.0); MCV 94.1 fL (80.0-100.0); MEAN PLATELET VOLUME 9.8 fL (7.4-10.4); MONOCYTES 7.6 % (2-11); NEUTROPHILS 76.8 % (40-80); RBC 3.71 10x6/uL (4.20-6.10); RDW 17.7 % (11.5-14.5); WBC 8.1 10x3/uL (4.8-10.8)
[2019-06-11 05:44] LABS: PLATELET COUNT 321 10x3/uL (130-400)
[2019-06-11 08:00] VITALS: BP 133/81
--- NOTE | 2019-06-11 11:55 | NUR ---
OT NOTE: PT REPORTED THAT PAIN IN FEET WAS IMPROVED, BUT STILL EXPERIENCING SIGNIFICANT PAIN IN R KNEE. BED MOB WITH EXTENDED TIME AND MIN/MOD ASSIST; ATTEMPTED SIT TO STAND WITH MAX ASSIST X 2 X 4 TRIALS. PT UNABLE TO EXTEND KNEES IN STANDING AND WEAKNESS IN HANDS PREVENTS PT FROM GRIPPING THE WALKER. REQUIRES ASSIST OF ONE TO KEEP PTS HANDS ON WALKER. MAX ASSIST TO DEVANTE SOCKS AND MAX ASSIST WITH TOILET HYGIENE; PERFORMED UE AND LE EXS WHILE SITTING ON EOB; MAX ASSIST X 2 FOR SIT TO SUPINE. REPOSITIONED WITH MAX ASSIST. ENCOURAGED TO PERFORM UE AND LE EXS WHILE IN BED TO PREVENT FURTHER STIFFNESS IN JOINTS. SANDRA KAMARA, OTR/L
[2019-06-11 12:17] VITALS: BP 103/69
[2019-06-11 16:32] VITALS: BP 132/84
--- NOTE | 2019-06-11 19:40 | NUR ---
OT NOTE: PT REQUIRED MAX A X3 FOR BED MOB TASKS. PT COMPLETED SUPINE TO SIT WITH MAX A X3. PT COMPLETED SIT TO STAND WITH MAX X3. PT COMPLETED UE AROM AXS. THANK YOU, DAJUAN STAHL
[2019-06-11 20:00] VITALS: BP 125/79
--- NOTE | 2019-06-11 20:12 | NUR ---
INITIALROUNDS COMPLETED AT 1910 HRS. PT DENIED ANYDISCOMFORT. ASSESMENT COMPLETED AT 1945 HRS. SR PER CM HR 84 WITH OCC PVC'S. ALERT AND ORIENTED TO PERSON,PLACE AND TIME. MONTIEL. IV TO RFA AND LFA SL. LUNGS DIMINISHED IN BASES BILAT. 1+PEDAL EDEMA NOTED. BILAT FEET WARM TO TOUCH. PALPABLEPERIPHERAL PULSES. DRESSING TO R NECK CLEAN,DRY AND INTACT. T BEDSIDE. 1ST STEP AIR OVERLAY MATTRESS IN USE. SR UP X2, CALL LIGHT WITHIN REACH.
--- NOTE | 2019-06-11 21:34 | NUR ---
PM MED GIVEN. AT BEDSIDE.
--- NOTE | 2019-06-11 23:30 | NUR ---
PT RESTING WITH EYES CLOSED. RESP EVEN AND REGULAR. SR UP X2, CALL LIGHT WITHIN REACH AND AT BEDSIDE.
[2019-06-12] VITALS: BP 118/87
--- NOTE | 2019-06-12 01:31 | NUR ---
PT AWAKE; DENIES ANY DISCOMFORT. AT BEDSIDE. CALL LIGHT WITHIN REACH.
--- NOTE | 2019-06-12 03:16 | NUR ---
PT RESTING WITH EYES CLOSED. RESP EVEN AND REGULAR. SR UP X2, CALL LIGHT WITHIN REACH AND WIFEA T BEDSIDE.
[2019-06-12 04:00] VITALS: BP 131/85
--- NOTE | 2019-06-12 04:17 | NUR ---
NORCO 5/325 MG PO GIVEN FOR C/O L FOOT PAIN. AT BEDSIDE.
[2019-06-12 04:32] LABS: BASOPHILS 0.2 % (0-2); EOSINOPHILS 0.7 % (0-7); HEMATOCRIT 35.7 % (42.0-54.0); HEMOGLOBIN 11.2 g/dL (13.5-17.5); IMMATURE GRANULOCYTES 0.2 % (0-5); LYMPHOCYTES 15.3 % (15-50); MCH 29.7 pg (26.0-34.0); MCHC 31.4 g/dL (31.0-37.0); MCV 94.7 fL (80.0-100.0); MEAN PLATELET VOLUME 9.3 fL (7.4-10.4); MONOCYTES 8.8 % (2-11); NEUTROPHILS 74.8 % (40-80); PLATELET COUNT 334 10x3/uL (130-400); RBC 3.77 10x6/uL (4.20-6.10); RDW 17.7 % (11.5-14.5)
[2019-06-12 04:53] LABS: ALKALINE PHOSPHATASE 164 U/L (46-116); BILIRUBIN - TOTAL 0.37 mg/dL (0.2-1.3); CALC OSMOLALITY 280 mosm/kg (275-300); CALCIUM 9.3 mg/dL (8.5-10.1); CARBON DIOXIDE 26.6 mmol/L (21.0-32.0); CHLORIDE - SERUM 104 mmol/L (98-107); CREATININE - SERUM 0.9 mg/dL (0.6-1.3); GLUCOSE 101 mg/dL (74-106); PROTEIN - SERUM 7.1 g/dL (6.4-8.2); SODIUM 140 mmol/L (136-145); UREA NITROGEN 17 mg/dL (7-18); eGFR NON AFRICAN AMERICAN 89 mL/min (90-120)
[2019-06-12 04:56] LABS: ALT (SGPT) 198 U/L (10-68)
--- NOTE | 2019-06-12 06:06 | NUR ---
VSS THROUGHOUT NIHGT. SR WITH OCC PVC'S PER CM HR IN 80'S. PT STATED NORCO CONTROLLED LEG/FOOT PAIN. NEEDS MET; WILL CONTINUE TO MONITOR.
[2019-06-12 08:55] VITALS: BP 116/80
--- NOTE | 2019-06-12 12:43 | NUR ---
Nutrition Follow up/Consult: Patient stated his appetite has been okay. Denied nausea and vomiting. He stated he cannot eat the regular del cid because it chokes him. Patient stated he enjoys drinking milk more than the nutrition supplements. Diet: AHA- Boost w/ meals PO intake: 44% x 8 meals BM: x 1 on 06/11 Wt: 229.2 lbs (no sig wt change) Meds: Amanda, Lovenox, Miralax, Protonix, Zofran Goals: PO intake >/= 75% for meals Stable weight DHS BM q 3 days Clincial dietitian to continue to monitoring closely and following DHS
--- NOTE | 2019-06-12 13:24 | MORECARE ---
CASE MANAGEMENT DISCHARGE SUMMARY PATIENT: OSIRIS HECK UNIT: [id number] ADM DATE: 06/06/19 AGE: 68 : 48 SEX: M ROOM/BED: D.2101 AUTHOR: APRIL,DOC PHYSICIAN: REFERRING PHYSICIAN: JANES CARREON MD DATE OF SERVICE: 06/12/19 Discharge Plan Patient Name: OSIRIS HECK Facility: [facility]:[place] : 1950 Planned Disposition: Fci Facility Anticipated Discharge Date: Discharge Date: Expected LOS: Initial Reviewer: [id number] Initial Review Date: 06/07/2019 Generated: 06/12/19 2:24 pm Comments DCP- Discharge Planning Updated by [id number]: Antonio Valdez on 06/12/19 12:[address] Patient Name: OSIRIS HECK Encounter No: [id number] : 1950 Primary Insurance: HUMANA CHOICE PPO MCR ADVANT Anticipated DC Date: Planned Disposition: Fci Facility External Planned Provider: [facility], MEDICARE REHAB BED DCP follow-up note: CM SPOKE TO PT ON 06-10-19 AT ABOUT 1725 HOURS, DISCUSSED DENIAL BY [facility]. CM DISCUSSED OTHER CHOICES FOR REHAB. PT WOULD LIKE REHAB AT [place] [facility] ONLY 20 [address]ES FROM HIS HOME. PT SIGNED CHOICE. ON 06-12-19, CM CALLED [facility], , SPOKE TO ROSALINDA WHO WILL PLACE REFERRAL ON NURSES DESK FOR ADMISSION REVIEW. CM FAXED REFERRAL TO [facility], . CM WAITING ADMISSION DETERMINATION FROM [facility] FOR REHAB. Antonio Valdez, CASE MANAGEMENT DCP- Discharge Planning Updated by [id number]: Antonio Valdez on 06/10/19 3:[address] Patient Name: OSIRIS HECK Encounter No: [id number] : 1950 Primary Insurance: [employer]MANA CHOICE PPO [facility] ADVANT Anticipated DC Date: Planned Disposition: Fci Facility External Planned Provider: TO BE DETERMINED DCP follow-up note: CM RECEIVED CALL FROM [facility], THEY CANNOT MEET PT'S NEEDS DUE TO [facility] READMISSIONS. CM TO MEET WITH PT AND FAMILY SOON POSSIBLE TO DISCUSS OTHER ALF REHAB OPTIONS. Antonio Valdez, CASE MANAGEMENT DCP- Discharge Planning Updated by [id number]: Antonio Valdez on 06/08/19 4:[address] Patient Name: OSIRIS HECK Encounter No: [id number] : 1950 Primary Insurance: HUMANA CHOICE PPO M[employer] ADVANT Anticipated DC Date: Planned Disposition: [facility]ci Facility External Planned Provider: [facility], MEDICARE REHAB BED DCP follow-up note: CM FAXED REFERRAL TO [facility] AT [phone]. CM TO FOLLOW UP WITH ADMISSIONS AT [facility] ON 06-09-19 AT [phone]. CM WAITING AD[facility]ION [facility]MIN[facility] TEJAS Mcclain DCP- Discharge Planning Updated by [id number]: Carleen Hawkins on 06/07/19 2:[address] Patient Name: OSIRIS HECK Admission Status: ER Accout number: [id number] Admission Date: 06-06-2019 : 1950 Admission Diagnosis: Attending: JANES COREAS Current LOS: 1 Anticipated DC Date: Planned Disposition: Primary Insurance: [employer] CHOICE PPO [employer] ADVANT Discharge Planning Comments: CM met with patient at bedside after explaining CM role and obtaining verbal consent. I SPOKE WITH PATIENT AND HIS NAA. PLAN IS FOR SNF AT [facility]. CURRENTLY HAS [facility] BUT THINKS HE NEEDS SNF. CM TO FOLLOW AND ASSIST. Raw Silk Grader: Carleen Hawkins DCPIA - Discharge Planning Initial Assessment Updated by [id number]: Carleen Hawkins on 06/07/19 3:13 pm * Is the patient Alert and Oriented? Yes * PCP [facility] * Pharmacy [facility] * Preadmission Environment Home with Family * ADLs Independent * Other Equipment WALKER * List name and contact numbers for known caregivers / representatives who currently or will assist patient after discharge: NAA, , * Community resources currently utilized Home Health * Please name any agencies selected above. [facility] [place] * Additional services required to return to the preadmission environment? No * Can the patient safely return to the preadmission environment? Yes * Has this patient been hospitalized within the prior 30 days at any hospital? No [facility] Next Contact Date: 06/12/2019 Service Request Date: Service Type: Resolution: Reviewer: Comments: Coverage Notice Reviewer: [id number] Derik Hawkins Notice Issued Date-Time: 06/07/2019 15:13 Notice Type: Patient Choice Letter Notice Delivered To: Family Member Relationship to Patient: Spouse Computer Sciences Professor Name: NAA Delivery Method: HAND - Hand Delivered Em Days: Prior Verbal Notification: Recipient Understood Notice: Yes Recipient Signature: Yes Med Rec Note Co-signed by Attending: Coverage Notice Comment: [facility] CURRENT WITH [facility] Reviewer: [id number] - Antonio Valdez Notice Issued Date-Time: 06/10/2019 17:25 Notice Type: Patient Choice Letter Notice Delivered To: Patient Relationship to Patient: Computer Sciences Professor Name: Delivery Method: HAND - Hand Delivered Em Days: Prior Verbal Notification: Recipient Understood Notice: Yes Recipient Signature: Yes Med Rec Note Co-signed by Attending: Coverage Notice Comment: Last DP export: 06/10/19 3:56 Patient Name: OSIRIS HECK Page 73237 at 1324 All edits/amendments must be made on the electronic document DICTATION DATE: 06/12/19 1323 MECHANICAL ASSEMBLY TECHNICIAN: OPAL 06/12/19 1323 RPT#: [id number] DC DATE: STATUS: ADM IN [facility] [address] [place] [address] END OF REPORT
[2019-06-12 13:48] VITALS: BP 153/84
[2019-06-12 16:42] VITALS: BP 109/74
--- NOTE | 2019-06-12 19:31 | NUR ---
REPORT RECIEVED AND ROUNDING COMPLETE. PATIENT LAYING IN BED IN HIGH FOWLERS. PATIENT LAYING IN BED WITH EYES CLOSED. BREATHING SHALLOW AND EVEN. PATIENT'S AT BEDSIDE. PATIENT HAS BILATERAL FOREARM PIVS. PIVS ARE PATENT AND DRESSING IS ADHERED TO SKIN. SWAP CAPS IN PLACE. STATES NO NEEDS AT THIS TIME. SHE STATES TO PLEASE LET HIM REST. CALL LIGHT WITHIN REACH AND BED IN LOWEST LOCKED POSITION.
[2019-06-12 20:00] VITALS: BP 126/68
--- NOTE | 2019-06-13 03:04 | NUR ---
I have reviewed this patient and I concur with the Shift Assessment completed by the Licensed Practical Nurse today this shift.
[2019-06-13 04:30] VITALS: BP 114/77
[2019-06-13 05:16] LABS: BASOPHILS 0.1 % (0-2); EOSINOPHILS 0.6 % (0-7); HEMATOCRIT 34.1 % (42.0-54.0); IMMATURE GRANULOCYTES 0.6 % (0-5); LYMPHOCYTES 17.1 % (15-50); MCH 30.6 pg (26.0-34.0); MCHC 32.3 g/dL (31.0-37.0); MCV 94.7 fL (80.0-100.0); MEAN PLATELET VOLUME 9.1 fL (7.4-10.4); MONOCYTES 7.4 % (2-11); NEUTROPHILS 74.2 % (40-80); PLATELET COUNT 326 10x3/uL (130-400); RDW 17.9 % (11.5-14.5); WBC 9.6 10x3/uL (4.8-10.8)
[2019-06-13 05:40] LABS: ALBUMIN 1.9 g/dL (3.4-5.0); ALKALINE PHOSPHATASE 150 U/L (46-116); ALT (SGPT) 168 U/L (10-68); BILIRUBIN - TOTAL 0.31 mg/dL (0.2-1.3); CALC OSMOLALITY 278 mosm/kg (275-300); CALCIUM 9.2 mg/dL (8.5-10.1); CHLORIDE - SERUM 103 mmol/L (98-107); GLUCOSE 107 mg/dL (74-106); POTASSIUM - SERUM 4.5 mmol/L (3.5-5.1); PROTEIN - SERUM 6.6 g/dL (6.4-8.2); SODIUM 138 mmol/L (136-145); UREA NITROGEN 22 mg/dL (7-18); eGFR NON AFRICAN AMERICAN 78 mL/min (90-120)
--- NOTE | 2019-06-13 07:20 | NUR ---
RECEIVED REPORT. ASSUMED CARE OF PATIENT. PATIENT RESTING IN BED WITH EYES OPEN. VISITOR AND HIS AT BEDSIDE. NO DISTRESS. CALL LIGHT WITHIN REACH.
[2019-06-13 09:23] VITALS: BP 118/90
--- NOTE | 2019-06-13 10:14 | NUR ---
CALLED PHARMACY TO REQUEST D5 MINI BAGS FOR ABX MIX.
--- NOTE | 2019-06-13 11:00 | NUR ---
PATIENT REMAINS OOB TO CHAIR AT BEDSIDE. NO DISTRESS.
--- NOTE | 2019-06-13 12:00 | NUR ---
PATIETN RETURN TO BED VIA HELP OF PT. PATIENT IS MAX ASSIST AND UNALBE TO BEAR WEIGHT. PATIENT IS VERY WEAK. PT STATES THAT UNTIL PATIENT IS A LTTLE BIT STRONGER, THEY ARE NOT GOING TO BE ABLE TO GET PATIENT OOB TO CHAIR, IT IS A RISK FOR PATIENT AND STAFF. CALL LIGHT WITHIN REACH. NO DISTRESS.
[2019-06-13 13:25] VITALS: BP 100/70
--- NOTE | 2019-06-13 16:05 | NUR ---
DRESSING TO RIGHT SIDE OF NECK REMOVED. SMALL SCAB NOTED. MEDICATED WITH TYLENOL AT THIS TIME. PATIENT HAVING MUSCLE CRAMPS AND IT IS TOO EARLY TO ADMINISTER ZANAFLEX. PATIENT RESTING IN BED. CALL LIGHT WITHIN REACH.
[2019-06-13 16:26] VITALS: BP 111/75
--- NOTE | 2019-06-13 19:00 | NUR ---
EVENING ROUNDS COMPLETE, WILL CONTINUE POC. PATIENT IS RESTING WITH EYES CLOSED, RR EVEN AND UNLABORED ON ROOM AIR. IV TO LT FA, PATENT, SL AND TO RT FA, PATENT, SL. FAMILY AT BEDSIDE. PATIENT DENIES NEEDS AT THIS TIME. CL IN REACH, BED LOCKED AND LOWERED. WILL CTM.
[2019-06-13 20:00] VITALS: BP 102/66
[2019-06-13 22:00] VITALS: BP 115/74
[2019-06-14 04:00] VITALS: BP 102/56
--- NOTE | 2019-06-14 04:10 | NUR ---
PATIENT TEMP 100.3, PATIENT C/O MUSCLES SPASMS. PRN ZANAFLEX ADMINISTERED. BLANKET REMOVED. WILL REASSESS TEMP.
[2019-06-14 04:34] LABS: BASOPHILS 0.1 % (0-2); EOSINOPHILS 0.7 % (0-7); HEMATOCRIT 31.9 % (42.0-54.0); HEMOGLOBIN 10.2 g/dL (13.5-17.5); IMMATURE GRANULOCYTES 0.3 % (0-5); LYMPHOCYTES 16.1 % (15-50); MCH 29.7 pg (26.0-34.0); MONOCYTES 8.3 % (2-11); NEUTROPHILS 74.5 % (40-80); PLATELET COUNT 326 10x3/uL (130-400); RBC 3.43 10x6/uL (4.20-6.10); RDW 17.7 % (11.5-14.5); WBC 9.7 10x3/uL (4.8-10.8)
[2019-06-14 04:57] LABS: ALBUMIN 1.8 g/dL (3.4-5.0); ALKALINE PHOSPHATASE 152 U/L (46-116); ALT (SGPT) 143 U/L (10-68); BILIRUBIN - TOTAL 0.36 mg/dL (0.2-1.3); CALC OSMOLALITY 270 mosm/kg (275-300); CALCIUM 9.2 mg/dL (8.5-10.1); CARBON DIOXIDE 26.7 mmol/L (21.0-32.0); CHLORIDE - SERUM 101 mmol/L (98-107); GLUCOSE 112 mg/dL (74-106); POTASSIUM - SERUM 4.2 mmol/L (3.5-5.1); PROTEIN - SERUM 6.6 g/dL (6.4-8.2); SODIUM 133 mmol/L (136-145); UREA NITROGEN 25 mg/dL (7-18); eGFR NON AFRICAN AMERICAN 78 mL/min (90-120)
--- NOTE | 2019-06-14 06:11 | NUR ---
RECHECKED TEMP 99.5, PO AM MEDS GIVEN ADMINISTERED. PATIENT TOLERATED WELL.
--- NOTE | 2019-06-14 06:54 | NUR ---
I have reviewed this patient and I concur with the Shift Assessment completed by the Licensed Practical Nurse today this shift.
--- NOTE | 2019-06-14 07:00 | NUR ---
RECEIVED REPORT. ASSUMED CARE OF PATIETN. CALL LIGHT WITHIN REACH. PATIETN RESTING WITH EYES CLOSED. RESP EVEN AND UNLABORD. NO DISTRESS. PATIENTS WITH EYES CLOSED IN CHAIR AT BEDSIDE. NO DISTRESS.
[2019-06-14 08:29] VITALS: BP 98/62
[2019-06-14 12:07] VITALS: BP 135/60
--- NOTE | 2019-06-14 13:07 | NUR ---
URINE CULTURE COLLECTED AND SUBMITTED TO LAB
[2019-06-14 13:16] LABS: APPEARANCE CLEAR (CLEAR); BILIRUBIN NEGATIVE (NEGATIVE); COLOR DK YELLOW (YELLOW); GLUCOSE NEGATIVE (NEGATIVE); KETONE NEGATIVE (NEGATIVE); NITRITE NEGATIVE (NEGATIVE); PROTEIN TRACE mg/dL (NEGATIVE); UROBILINOGEN NORMAL (NORMAL)
[2019-06-14 13:23] LABS: WHITE CELLS - URINE RARE /hpf (NEGATIVE)
[2019-06-14 13:24] LABS: BACTERIA NONE SEEN /hpf (NEGATIVE); EPITHELIAL CELLS RARE /hpf (0-5); RED CELLS - URINE 0-5 /hpf (0-5)
--- NOTE | 2019-06-14 13:56 | NUR ---
LOVENOX INJECTIONS NOT SCANNING AND HAD TO MANUAL INPUT MEDICATION
--- NOTE | 2019-06-14 15:15 | NUR ---
TURNED,REPOSITIONED, COMPLETE BED AND GOWN CHANGED. ADLS COMPLETE. NO DISTRESS. CALL LIGHT WITHIN REACH.
[2019-06-14 16:21] VITALS: BP 129/76
--- NOTE | 2019-06-14 19:10 | NUR ---
AROUSED WITH VOICE AND DENIED NEEDS AT THIS TIME BED LOW AND LOCKED WITH AT BEDSIDE WITH CALL LIGHT PT ALERT AND OX4
[2019-06-14 20:00] VITALS: BP 105/69
--- NOTE | 2019-06-14 21:10 | NUR ---
PT CO SEVERE LEG PAIN AND CRAPS AT THIOS TIME
[2019-06-15] VITALS: BP 107/68
--- NOTE | 2019-06-15 03:33 | NUR ---
I have reviewed this patient and I concur with the Shift Assessment completed by the Licensed Practical Nurse today this shift.
[2019-06-15 04:00] VITALS: BP 100/63
[2019-06-15 04:50] LABS: ALBUMIN 1.8 g/dL (3.4-5.0); ANION GAP 8.1 mmol/L (8-16); BILIRUBIN - TOTAL 0.21 mg/dL (0.2-1.3); CALCIUM 8.9 mg/dL (8.5-10.1); CARBON DIOXIDE 28.1 mmol/L (21.0-32.0); CREATININE - SERUM 1.1 mg/dL (0.6-1.3); POTASSIUM - SERUM 4.2 mmol/L (3.5-5.1); PROTEIN - SERUM 6.6 g/dL (6.4-8.2)
[2019-06-15 04:57] LABS: BASOPHILS 0.2 % (0-2); HEMOGLOBIN 10.3 g/dL (13.5-17.5); IMMATURE GRANULOCYTES 0.4 % (0-5); MCH 29.3 pg (26.0-34.0); MCHC 31.2 g/dL (31.0-37.0); MONOCYTES 6.9 % (2-11); NEUTROPHILS 75.5 % (40-80); PLATELET COUNT 310 10x3/uL (130-400); RBC 3.51 10x6/uL (4.20-6.10); RDW 17.9 % (11.5-14.5); WBC 8.1 10x3/uL (4.8-10.8)
--- NOTE | 2019-06-15 06:04 | NUR ---
AM MED GIVEN. NO DISTRESS NOTED.
--- NOTE | 2019-06-15 06:25 | MORECARE ---
CASE MANAGEMENT DISCHARGE SUMMARY PATIENT: OSIRIS HECK UNIT: [id number] ADM DATE: 06/06/19 AGE: 68 : 48 SEX: M ROOM/BED: D.2101 AUTHOR: APRIL,DOC PHYSICIAN: REFERRING PHYSICIAN: JANES CARREON MD DATE OF SERVICE: 06/15/19 Discharge Plan Patient Name: OSIRIS HECK Facility: [facility]:[place] : 1950 Planned Disposition: Senior Care Facility Anticipated Discharge Date: Discharge Date: Expected LOS: Initial Reviewer: [id number] Initial Review Date: 06/07/2019 Generated: 06/15/19 7:24 am Comments DCP- Discharge Planning Updated by [id number]: Antonio Valdez on 06/12/19 12:[address] Patient Name: OSIRIS HECK Encounter No: [id number] : 1950 Primary Insurance: HUMANA CHOICE PPO MCR ADVANT Anticipated DC Date: Planned Disposition: Senior Care Facility External Planned Provider: [facility], MEDICARE REHAB BED DCP follow-up note: CM SPOKE TO PT ON 06-10-19 AT ABOUT 1725 HOURS, DISCUSSED DENIAL BY [employer]. CM DISCUSSED OTHER CHOICES FOR REHAB. PT WOULD LIKE REHAB AT [place] IT ONLY 20 [address]ES FROM HIS HOME. PT SIGNED CHOICE. ON 06-12-19, CM CALLED [facility], , SPOKE TO ROSALINDA WHO WILL PLACE REFERRAL ON NURSES DESK FOR ADMISSION REVIEW. CM FAXED REFERRAL TO [facility], . CM WAITING ADMISSION DETERMINATION FROM [facility] FOR REHAB. Antonio Vladez, CASE MANAGEMENT DCP- Discharge Planning Updated by [id number]: Antonio Valdez on 06/10/19 3:[address] Patient Name: OSIRIS HECK Encounter No: [id number] : 1950 Primary Insurance: HUMANA CHOICE PPO MCR ADVANT Anticipated DC Date: Planned Disposition: Senior Care Facility External Planned Provider: TO BE DETERMINED DCP follow-up note: CM RECEIVED CALL FROM [employer], THEY CANNOT MEET PT'S NEEDS DUE TO [facility]. CM TO MEET WITH PT AND FAMILY SOON POSSIBLE TO DISCUSS OTHER SENIOR LIVING REHAB OPTIONS. Antonio Valdez, CASE MANAGEMENT DCP- Discharge Planning Updated by [id number]: Antonio Valdez on 06/08/19 4:[address] Patient Name: OSIRIS HECK Encounter No: [id number] : 1950 Primary Insurance: HUMANA CHOICE PPO MCR ADVANT Anticipated DC Date: Planned Disposition: Senior Care Facility External Planned Provider: [facility], MEDICARE REHAB BED DCP follow-up note: CM FAXED REFERRAL TO [facility] AT [phone]. CM TO FOLLOW UP WITH ADMISSIONS AT [facility] ON 06-09-19 AT [phone]. CM WAITING ADMISSION [facility] TEJAS Mcclain DCP- Discharge Planning Updated by [id number]: Carleen Hawkins on 06/07/19 2:[address] Patient Name: OSIRIS HECK Admission Status: ER Accout number: [id number] Admission Date: 06-06-2019 : 1950 Admission Diagnosis: Attending: JANES COREAS Current LOS: 1 Anticipated DC Date: Planned Disposition: Primary Insurance: HUMANA CHOICE PPO MCR ADVANT Discharge Planning Comments: CM met with patient at bedside after explaining CM role and obtaining verbal consent. I SPOKE WITH PATIENT AND HIS NAA. PLAN IS FOR SNF AT [facility]. CURRENTLY HAS [facility] BUT THINKS HE NEEDS SNF. CM TO FOLLOW AND ASSIST. Logistics Loss Prevention Manager: Carleen Hawkins DCPIA - Discharge Planning Initial Assessment Updated by [id number]: Carleen Hawkins on 06/07/19 3:13 pm * Is the patient Alert and Oriented? Yes * PCP [facility] * Pharmacy [facility] * Preadmission Environment Home with Family * ADLs Independent * Other Equipment WALKER * List name and contact numbers for known caregivers / representatives who currently or will assist patient after discharge: NAA, , * Community resources currently utilized Home Health * Please name any agencies selected above. [facility] [place] * Additional services required to return to the preadmission environment? No * Can the patient safely return to the preadmission environment? Yes * Has this patient been hospitalized within the prior 30 days at any hospital? No Coverage Notice Reviewer: [id number] Derik Hawkins Notice Issued Date-Time: 06/07/2019 15:13 Notice Type: Patient Choice Letter Notice Delivered To: Family Member Relationship to Patient: Spouse Mixer Tender Name: NAA Delivery Method: HAND - Hand Delivered Em Days: Prior Verbal Notification: Recipient Understood Notice: Yes Recipient Signature: Yes Med Rec Note Co-signed by Attending: Coverage Notice Comment: [facility]RENT [facility] Reviewer: [id number] - Antonio Valdez Notice Issued Date-Time: 06/10/2019 17:25 Notice Type: Patient Choice Letter Notice Delivered To: Patient Relationship to Patient: Mixer Tender Name: Delivery Method: HAND - Hand Delivered Em Days: Prior Verbal Notification: Recipient Understood Notice: Yes Recipient Signature: Yes Med Rec Note Co-signed by Attending: Coverage Notice Comment: Last DP export: 06/12/19 12:24 Patient Name: OSIRIS HECK Page 38810 at 0625 All edits/amendments must be made on the electronic document DICTATION DATE: 06/15/19623 MANAGER MEDICARE: OPAL 06/15/19623 RPT#: [id number] DC DATE: STATUS: ADM IN [facility] [address] [place] [address] END OF REPORT
--- NOTE | 2019-06-15 06:37 | MORECARE ---
CASE MANAGEMENT DISCHARGE SUMMARY PATIENT: OSIRIS HECK UNIT: [id number] ADM DATE: 06/06/19 AGE: 68 : 48 SEX: M ROOM/BED: D.2101 AUTHOR: APRIL,DOC PHYSICIAN: REFERRING PHYSICIAN: JANES CARREON MD DATE OF SERVICE: 06/15/19 Discharge Plan Patient Name: OSIRIS HECK Facility: [facility]:[place] : 1950 Planned Disposition: Half-Way Facility Anticipated Discharge Date: Discharge Date: Expected LOS: Initial Reviewer: [id number] Initial Review Date: 06/07/2019 Generated: 06/15/19 7:37 am Comments DCP- Discharge Planning Updated by [email or web address]: Antonio Valdez on 06/15/19 5:[address] Patient Name: OSIRIS HECK Encounter No: [id number] : 1950 Primary Insurance: HUMANA CHOICE PPO MCR ADVANT Anticipated DC Date: Planned Disposition: Half-Way Facility External Planned Provider[facility] DCP follow-up note: CM FAXED REFERRAL UPDATE TO [facility], . CM WAITING ADMISSION DETERMINATION FROM [facility] FOR REHAB. Antonio Valdez CASE MANAGEMENT DCP- Discharge Planning Updated by [id number]: Antonio Valdez on 06/12/19 12:[address] Patient Name: OSIRIS HECK Encounter No: [id number] : 1950 Primary Insurance: HUMANA CHOICE PPO MCR ADVANT Anticipated DC Date: Planned Disposition: Half-Way Facility External Planned Provider: [facility], MEDICARE REHAB BED DCP follow-up note: CM SPOKE TO PT ON 06-10-19 AT ABOUT 1725 HOURS, DISCUSSED DENIAL BY DC BERRIOS. CM DISCUSSED OTHER CHOICES FOR REHAB. PT WOULD LIKE REHAB AT [place] IT ONLY 20 MILES FROM HIS HOME. PT SIGNED CHOICE. ON 06-12-19, CM CALLED [facility], , SPOKE TO ROSALINDA WHO WILL PLACE REFERRAL ON NURSES DESK FOR ADMISSION REVIEW. CM FAXED REFERRAL TO [facility], . CM WAITING ADMISSION DETERMINATION FROM [facility] FOR RE[facility]. TEJAS Mcclain DCP- Discharge Planning Updated by [id number]: Antonio Vadlez on 06/10/19 3:[address] Patient Name: OSIRIS HECK Encounter No: [id number] : 1950 Primary Insurance: HUMANA CHOICE PPO MCR ADVANT Anticipated DC Date: Planned Disposition: Half-Way Facility External Planned Provider: TO BE DETERMINED DCP follow-up note: CM RECEIVED CALL FROM [facility], THEY CANNOT MEET PT'S NEEDS DUE TO [facility]. CM TO MEET WITH PT AND FAMILY SOON POSSIBLE TO DISCUSS OTHER DETENTION REHAB OPTIONS. TEJAS Mcclain DCP- Discharge Planning Updated by [email or web address]: Antonio Valdez on 06/08/19 4:[address] Patient Name: OSIRIS HECK Encounter No: [id number] : 1950 Primary Insurance: HUMANA CHOICE PPO MCR ADVANT Anticipated DC Date: Planned Disposition: Half-Way Facility External Planned Provider: [facility] DCP follow-up note: CM FAXED REFERRAL TO [facility] AT [phone]. CM TO FOLLOW UP WITH ADMISSIONS AT [facility] ON 06-09-19 AT [phone]. CM WAITING ADMISSION DETERMINATION FROM [facility]. TEJAS Mcclain DCP- Discharge Planning Updated by [id number]: Carleen Hawkins on 06/07/19 2:[address] Patient Name: OSIRIS HECK Admission Status: ER Accout number: [id number] Admission Date: 06-06-2019 : 1950 Admission Diagnosis: Attending: JANES COREAS Current LOS: 1 Anticipated DC Date: Planned Disposition: Primary Insurance: HUMANA CHOICE PPO MCR ADVANT Discharge Planning Comments: CM met with patient at bedside after explaining CM role and obtaining verbal consent. I SPOKE WITH PATIENT AND HIS NAA. PLAN IS FOR SNF AT [facility]. CURRENTLY HAS [facility] BUT THINKS HE NEEDS SNF. CM TO FOLLOW AND ASSIST. Pearl Restorer: Carleen Hawkins DCPIA - Discharge Planning Initial Assessment Updated by [email or web address]: Carleen Hawkins on 06/07/19 3:13 pm * Is the patient Alert and Oriented? Yes * PCP [facility] * Pharmacy [facility] * Preadmission Environment Home with Family * ADLs Independent * Other Equipment WALKER * List name and contact numbers for known caregivers / representatives who currently or will assist patient after discharge: VALENTINO JACOME, * Community resources currently utilized Home Health * Please name any agencies selected above. [facility] [place] * Additional services required to return to the preadmission environment? No * Can the patient safely return to the preadmission environment? Yes * Has this patient been hospitalized within the prior 30 days at any hospital? No External Providers External Provider: [facility] Next Contact Date: 06/12/2019 Service Request Date: Service Type: Resolution: Reviewer: Comments: Coverage Notice Reviewer: [id number] Derik Hawkins Notice Issued Date-Time: 06/07/2019 15:13 Notice Type: Patient Choice Letter Notice Delivered To: Family Member Relationship to Patient: Spouse Admissions Dean Name: NAA Delivery Method: HAND - Hand Delivered Em Days: Prior Verbal Notification: Recipient Understood Notice: Yes Recipient Signature: Yes Med Rec Note Co-signed by Attending: Coverage Notice Comment: [facility] Reviewer: [id number] - Antonio Valdez Notice Issued Date-Time: 06/10/2019 17:25 Notice Type: Patient Choice Letter Notice Delivered To: Patient Relationship to Patient: Admissions Dean Name: Delivery Method: HAND - Hand Delivered Em Days: Prior Verbal Notification: Recipient Understood Notice: Yes Recipient Signature: Yes Med Rec Note Co-signed by Attending: Coverage Notice Comment: Last DP export: 06/15/19 5:25 a Patient Name: OSIRIS HECK Page 87178 at 0637 All edits/amendments must be made on the electronic document DICTATION DATE: 06/15/19636 RAW SILK GRADER: OPAL 06/15/19636 RPT#: [id number] DC DATE: STATUS: ADM IN [facility] [address] [place] [address] END OF REPORT
--- NOTE | 2019-06-15 08:03 | NUR ---
RECIEVED REPORT. PATIENT IS RESTING QUIETLY AT THIS TIME. AT BEDSIDE. PATIENT TREATED FOR MUSCLE CRAMPS IN HIS LEGS WITH PRN MEDICATIONS ORDERED.
[2019-06-15 08:17] VITALS: BP 115/73
[2019-06-15 11:43] VITALS: BP 119/76
[2019-06-15 15:04] VITALS: BP 147/69
--- NOTE | 2019-06-15 16:07 | NUR ---
OT NOTE: ASSISTED PT BACK TO BED WITH MAX ASSIST; CONTINUED C/O PAIN IN KNEES; EDUCATION ON BED MOB WITH MIN/MOD ASSIST. SANDRA KAMARA, OTR/L
--- NOTE | 2019-06-15 19:45 | NUR ---
ACKNOWLEDGED DR BUSTILLO'S INSTRUCTIONS TO CALL DR PATEL AND ASK ABOUT DVT PLAN. PATIENT HAS HAD A FILTER PLACED IN THE LEFT LEG ON 06/09/19. HE IS ON LARGE DOSES OF LOVENOX. I DID PAGE DR PATEL, AND DID NOT GET A CALL BACK. WILL PASS TO RESOURCING CONSULTANT NURSE.
[2019-06-15 20:00] VITALS: BP 116/72
--- NOTE | 2019-06-15 20:41 | NUR ---
OT NOTE: PT COMPLETED SUPINE TO SIT WITH MAX A X2. PT COMPLETED BUE AROM EXS. THANK YOU, DAJUAN STAHL
[2019-06-16] VITALS: BP 109/62
[2019-06-16 04:00] VITALS: BP 118/71
[2019-06-16 06:57] LABS: BASOPHILS 0.1 % (0-2); EOSINOPHILS 0.8 % (0-7); HEMATOCRIT 31.6 % (42.0-54.0); HEMOGLOBIN 9.9 g/dL (13.5-17.5); IMMATURE GRANULOCYTES 0.4 % (0-5); LYMPHOCYTES 13.9 % (15-50); MCH 29.6 pg (26.0-34.0); MCHC 31.3 g/dL (31.0-37.0); MCV 94.3 fL (80.0-100.0); MEAN PLATELET VOLUME 9.3 fL (7.4-10.4); MONOCYTES 6.5 % (2-11); NEUTROPHILS 78.3 % (40-80); PLATELET COUNT 358 10x3/uL (130-400); RBC 3.35 10x6/uL (4.20-6.10); RDW 17.7 % (11.5-14.5); WBC 9.5 10x3/uL (4.8-10.8)
[2019-06-16 07:10] LABS: ALBUMIN 1.8 g/dL (3.4-5.0); ANION GAP 13.3 mmol/L (8-16); BILIRUBIN - TOTAL 0.28 mg/dL (0.2-1.3); CALCIUM 8.9 mg/dL (8.5-10.1); CARBON DIOXIDE 25.8 mmol/L (21.0-32.0); CREATININE - SERUM 1.1 mg/dL (0.6-1.3); POTASSIUM - SERUM 4.1 mmol/L (3.5-5.1); PROTEIN - SERUM 6.7 g/dL (6.4-8.2)
--- NOTE | 2019-06-16 07:13 | NUR ---
PATIENT IS RESTING QUIETLY AT THIS TIME. SHE DENIES ANY NEEDS.RECIEVED REPORT FROM DIRECTOR MARKET INTELLIGENCE.
--- NOTE | 2019-06-16 07:17 | NUR ---
PATIENT IS RESITNG ON HIS BACK AT THIS TIME. DENIES ANY NEEDS. REPORTS THAT HIS LEGS ARE LESS JUMPY TODAY. RECIVED REPORT.
[2019-06-16 08:13] VITALS: BP 110/74
--- NOTE | 2019-06-16 10:01 | NUR ---
Nutrition Follow-up: Pt reports appetite improving. Ate ~75% of breakfast this AM. No longer wants Boost with meals. Diet: Cardiac, Boost TID Wt: 221# Last BM: 06/14 Labs noted: Glu 115, Alb 1.8 Meds noted: Miralax, Protonix -Continue current diet as tolerated. -D/c Boost. -RD following.
--- NOTE | 2019-06-16 10:07 | MORECARE ---
CASE MANAGEMENT DISCHARGE SUMMARY PATIENT: OSIRIS HECK UNIT: [id number] ADM DATE: 06/06/19 AGE: 68 : 48 SEX: M ROOM/BED: D.2101 AUTHOR: APRIL,DOC PHYSICIAN: REFERRING PHYSICIAN: JANES CARREON MD DATE OF SERVICE: 06/16/19 Discharge Plan Patient Name: OSIRIS HECK Facility: [facility]:[place] : 1950 Planned Disposition: Fpc Facility Anticipated Discharge Date: 06/17/19 Discharge Date: Expected LOS: 11 Initial Reviewer: [id number] Initial Review Date: 06/07/2019 Generated: 06/16/19 11:07 am Comments DCP- Discharge Planning Updated by [email or web address]: Antonio Valdez on 06/16/19 9:[address] Patient Name: OSIRIS HECK Encounter No: [id number] : 1950 Primary Insurance: HUMANA CHOICE PPO MCR ADVANT Anticipated DC Date: Planned Disposition: Fpc Facility External Planned Provider: [facility], MEDICARE REHAB BED DCP follow-up note: CM FAXED REFERRAL UPDATE TO [facility], . CM RECEIVED CALL FROM ROSALINDA OF [facility], , WHO INFORMED CM THAT SHE IS STILL WAITING ON INSURANCE AUTHORIZATION FOR REHAB SERVICES. CM WAITING INSURANCE AUTHORIZATION FOR REHAB SERVICES AT [facility]. TEJAS Mcclain DCP- Discharge Planning Updated by [id number]: Antonio Valdez on 06/15/19 5:[address] Patient Name: OSIRIS HECK Encounter No: [id number] : 1950 Primary Insurance: HUMANA CHOICE PPO MCR ADVANT Anticipated DC Date: Planned Disposition: Fpc Facility External Planned Provider: [facility], MEDICARE REHAB BED DCP follow-up note: CM FAXED REFERRAL UPDATE TO [facility], . CM WAITING ADMISSION DETERMINATION FROM [facility] FOR RE[facility]. TEJAS Mcclain DCP- Discharge Planning Updated by [id number]: Antonio Valdez on 06/12/19 12:[address] Patient Name: OSIRIS HECK Encounter No: [id number] : 1950 Primary Insurance: HUMANA Poke[employer] Call PPO MCR ADVANT Anticipated DC Date: Planned Disposition: Fpc Facility External Planned Provider: [facility] DCP follow-up note: CM SPOKE TO PT ON 06-10-19 AT ABOUT 1725 HOURS, DISCUSSED DENIAL BY [employer] BERRIOS. CM DISCUSSED OTHER CHOICES FOR REHAB. PT WOULD LIKE REHAB AT [place] IT ONLY 20 [address]ES FROM HIS HOME. PT SIGNED CHOICE. ON 06-12-19, CM CALLED [facility], , SPOKE TO ROSALINDA WHO WILL PLACE REFERRAL ON NURSES DESK FOR ADMISSION REVIEW. CM FAXED REFERRAL TO [facility], . CM WAITING ADMISSION DETERMINATION FROM [facility] FOR REHAB. Antonio Valdez, CASE MANAGEMENT DCP- Discharge Planning Updated by [id number]: Antonio Valdez on 06/10/19 3:[address] Patient Name: OSIRIS HECK Encounter No: [id number] : 1950 Primary Insurance: HUMANA CHOICE PPO MCR ADVANT Anticipated DC Date: Planned Disposition: Fpc Facility External Planned Provider: TO BE DETERMINED DCP follow-up note: CM RECEIVED CALL FROM [facility], THEY CANNOT MEET PT'S NEEDS DUE TO [facility]. CM TO MEET WITH PT AND FAMILY SOON POSSIBLE TO DISCUSS OTHER HALF-WAY REHAB OPTIONS. Antonio Valdez CASE MANAGEMENT DCP- Discharge Planning Updated by [id number]: Antonio Valdez on 06/08/19 4:[address] Patient Name: OSIRIS HECK Encounter No: [id number] : 1950 Primary Insurance: HUMANA Poke'n Call PPO MCR ADVANT Anticipated DC Date: Planned Disposition: Fpc Facility External Planned Provider: [facility], MEDICARE REHAB BED DCP follow-up note: CM FAXED REFERRAL TO [facility] AT [phone]. CM TO FOLLOW UP WITH ADMISSIONS AT [facility] ON 06-09-19 AT [phone]. CM WAITING AD[facility]ION [facility]MIN[facility]. Antonio Valdez CASE MANAGEMENT DCP- Discharge Planning Updated by [id number]: Carleen Hawkins on 06/07/19 2:[address] Patient Name: OSIRIS HECK Admission Status: ER Accout number: [id number] Admission Date: 06-06-2019 : 1950 Admission Diagnosis: Attending: JANES COREAS Current LOS: 1 Anticipated DC Date: Planned Disposition: Primary Insurance: HUMANA CHOICE PPO MCR ADVANT Discharge Planning Comments: CM met with patient at bedside after explaining CM role and obtaining verbal consent. I SPOKE WITH PATIENT AND HIS NAA. PLAN IS FOR SNF AT [facility] IN [place], [facility] SIGNED. CURRENTLY HAS [facility] BUT THINKS HE NEEDS SNF. CM TO FOLLOW AND ASSIST. Securities Supervisor: Carleen Hawkins DCPIA - Discharge Planning Initial Assessment Updated by [id number]: Carleen Hawkins on 06/07/19 3:13 pm * Is the patient Alert and Oriented? Yes * PCP [facility] * Pharmacy [facility] * Preadmission Environment Home with Family * ADLs Independent * Other Equipment WALKER * List name and contact numbers for known caregivers / representatives who currently or will assist patient after discharge: VALENTINO JACOME, * Community resources currently utilized Home Health * Please name any agencies selected above. [facility] IN [place] [facility] * Additional services required to return to the preadmission environment? No * Can the patient safely return to the preadmission environment? Yes * Has this patient been hospitalized within the prior 30 days at any hospital? No Coverage Notice Reviewer: [id number] - Carleen Hawkins Notice Issued Date-Time: 06/07/2019 15:13 Notice Type: Patient Choice Letter Notice Delivered To: Family Member Relationship to Patient: Spouse Head And Neck Surgeon Name: NAA Delivery Method: HAND - Hand Delivered Em Days: Prior Verbal Notification: Recipient Understood Notice: Yes Recipient Signature: Yes Med Rec Note Co-signed by Attending: Coverage Notice Comment: [facility] CURRENT WITH Last 2 Left IN [place] [facility] Reviewer: [id number] - Antonio Valdez Notice Issued Date-Time: 06/10/2019 17:25 Notice Type: Patient Choice Letter Notice Delivered To: Patient Relationship to Patient: Head And Neck Surgeon Name: Delivery Method: HAND - Hand Delivered Em Days: Prior Verbal Notification: Recipient Understood Notice: Yes Recipient Signature: Yes Med Rec Note Co-signed by Attending: Coverage Notice Comment: Last DP export: 06/15/19 5:37 a Patient Name: OSIRIS HECK Page 44121 at 1007 All edits/amendments must be made on the electronic document DICTATION DATE: 06/16/19 1007 TRENCHER DRIVER: OPAL 06/16/[address] [facility] RPT#: [id number] DC DATE: STATUS: ADM IN [facility] [address] [place] [address] END OF REPORT
[2019-06-16 11:13] VITALS: BP 122/74
--- NOTE | 2019-06-16 11:16 | NUR ---
TALKED WITH DR PATEL REGARDING THE PATIENT CARE PLAN WITH HIS DVT . REVIEWED CHART AND RECORDS. ACKNOWLEDGED NOTE FROM DR BUSTILLO REGARDING PLAN.
[2019-06-16 12:09] LABS: FACTOR II DNA ANALYSIS Negative (())
[2019-06-16 15:06] VITALS: BP 127/82
--- NOTE | 2019-06-16 15:16 | NUR ---
PATIENT REPORTS BEING VERY DEPRESSED. HE WOULD LIKE TO SEE HIS FAMILY. NEW MEDICATION ORDERED FOR DEPRESSION.
--- NOTE | 2019-06-16 15:33 | NUR ---
OT NOTE: PT COMPLETED SUPINE TO SIT WITH MAX A X2. PT COMPLETED EOB SITTING WITH SBA/CGA. PT COMPLETED BED POSITIONING WITH MAX A. THANK YOU, DAJUAN STAHL
--- NOTE | 2019-06-16 16:07 | NUR ---
OT NOTE: BED MOB WITH MAX ASSIST X 2; DECREASED TRUNK CONTROL NOTED TODAY WHILE ON EOB. PERFORMED UE AND LE EXS ON EOB WITH OCCASSIONAL ASSIST FOR SITTING BALANCE. SIMPLE GROOMING TASK WITH SET UP; BACK TO BED WITH MAX ASSIST; MOD ASSIST TO ROLL FROM SIDE TO SIDE AND MAX ASSIST TO REPOSITION. CONTINUED C/O PAIN IN B KNEES..L GREATER THAN R TODAY. SANDRA KAMARA, OTR/L
--- NOTE | 2019-06-16 17:16 | MORECARE ---
CASE MANAGEMENT DISCHARGE SUMMARY PATIENT: OSIRIS HECK UNIT: [id number] ADM DATE: 06/06/19 AGE: 68 : 48 SEX: M ROOM/BED: D.2101 AUTHOR: APRIL,DOC PHYSICIAN: REFERRING PHYSICIAN: JANES CARREON MD DATE OF SERVICE: 06/16/19 Discharge Plan Patient Name: OSIRIS HECK Facility: [facility]:[place] : 1950 Planned Disposition: Custodial Facility Anticipated Discharge Date: 06/17/19 Discharge Date: Expected LOS: 11 Initial Reviewer: [id number] Initial Review Date: 06/07/2019 Generated: 06/16/19 6:15 pm Comments DCP- Discharge Planning Updated by [email or web address]: Antonio Valdez on 06/16/19 4:[address] Patient Name: OSIRIS HECK Encounter No: [id number] : 1950 Primary Insurance: [employer] CHOICE PPO MCR ADVANT Anticipated DC Date: 06-17-2019 Planned Disposition: Custodial Facility External Planned Provider: [facility], MEDICARE REHAB BED DCP follow-up note: CM RECEIVED CALL FROM ROSALINDA OF [facility], SHE HAS RECEIVED INSURANCE APPROVAL AND WILL ACCEPT PT IN THE MORNING. CM NOTIFIED DR. BUSTILLO. CM NOTIFED PT IN ROOM WHO IS WILLING FOR REHAB AND WANTS TO GO SOON POSSIBLE. CM EXPLAINED THAT PT CAN GO IN THE MORNING. PT SATISFIED. IMPORTANT MESSAGE FROM MEDICARE PROVIDED AND EXPLAINED. CM CALLED NAA, , , THERE WAS NO ANSWER. FOR DISCHARGE 06-17-19, FAX DISCHARGE INFORMATION TO [facility] AT [phone], NURSE REPORT TO BE CALLED TO [facility] AT [phone]. PT TO TRANSPORT VIA AMBULANCE TO [facility], [address] [place] [id number]. Antonio Valdez, CASE MANAGEMENT DCP- Discharge Planning Updated by [email or web address]: Antonio Valdez on 06/16/19 9:[address] Patient Name: OSIRIS HECK Encounter No: [id number] : 1950 Primary Insurance: HU[employer]NA CHOICE PPO MCR ADVANT Anticipated DC Date: Planned Disposition: Custodial Facility External Planned Provider: [facility] DCP follow-up note: CM FAXED REFERRAL UPDATE TO [facility], . CM RECEIVED CALL FROM ROSALINDA OF [facility], , WHO INFORMED CM THAT SHE IS STILL WAITING ON INSURANCE AUTHORIZATION FOR REHAB SERVICES. CM WAITING INSURANCE AUTHORIZATION FOR REHAB SERVICES AT [facility]. TEJAS Mcclain MANAGEMENT DCP- Discharge Planning Updated by [email or web address]: Antonio Valdez on 06/15/19 5:[address] Patient Name: OSIRIS HECK Encounter No: [id number] : 1950 Primary Insurance: HU[employer] CHOICE PPO MCR ADVANT Anticipated DC Date: Planned Disposition: Custodial Facility External Planned Provider: [facility] DCP follow-up note: CM FAXED REFERRAL UPDATE TO [facility], . CM WAITING ADMISSION DETERMINATION FROM [facility] FOR REHAB. TEJAS Mcclain DCP- Discharge Planning Updated by [id number]: Antonio aVldez on 06/12/19 12:[address] Patient Name: OSIRIS HECK Encounter No: [id number] : 1950 Primary Insurance: HU[employer]NA CHOICE PPO MCR ADVANT Anticipated DC Date: Planned Disposition: Custodial Facility External Planned Provider: [facility], MEDICARE REHAB BED DCP follow-up note: CM SPOKE TO PT ON 06-10-19 AT ABOUT 1725 HOURS, DISCUSSED DENIAL BY DC BERRIOS. CM DISCUSSED OTHER CHOICES FOR REHAB. PT WOULD LIKE REHAB AT [place] IT ONLY [address]ES FROM HIS HOME. PT SIGNED CHOICE. ON 06-12-19, CM CALLED [facility], , SPOKE TO ROSALINDA WHO WILL PLACE REFERRAL ON NURSES DESK FOR ADMISSION REVIEW. CM FAXED REFERRAL TO [facility], . CM WAITING ADMISSION DETERMINATION FROM [facility] FOR REHAB. TEJAS Mcclain MANAGEMENT DCP- Discharge Planning Updated by [email or web address]: Antonio Valdez on 06/10/19 3:[address] Patient Name: OSIRIS HECK Encounter No: [id number] : 1950 Primary Insurance: [employer] CHOICE PPO MCR ADVANT Anticipated DC Date: Planned Disposition: Custodial Facility External Planned Provider: TO BE DETERMINED DCP follow-up note: CM RECEIVED CALL FROM [facility] [place], THEY CANNOT MEET PT'S NEEDS DUE [facility]. CM TO MEET WITH PT AND FAMILY SOON POSSIBLE TO DISCUSS OTHER NURSING HOME REHAB OPTIONS. Antonio Valdez CASE MANAGEMENT DCP- Discharge Planning Updated by [email or web address]: Antonio Valdez on 06/08/19 4:[address] Patient Name: OSIRIS HECK Encounter No: [id number] : 1950 Primary Insurance: HUMANA CHOICE PPO MCR ADVANT Anticipated DC Date: Planned Disposition: Custodial Facility External Planned Provider: [facility], MEDICARE REHAB BED DCP follow-up note: CM FAXED REFERRAL TO [facility] [place] AT [phone]. CM TO FOLLOW UP WITH ADMISSIONS AT [facility] [place] ON 06-09-19 AT [phone]. CM WAITING ADMISSION DETERMINATION FROM [facility]. TEJAS Mcclain MANAGEMENT DCP- Discharge Planning Updated by [email or web address]: Carleen Hawkins on 06/07/19 2:[address] Patient Name: OSIRIS HECK Admission Status: ER Accout number: [id number] Admission Date: 06-06-2019 : 1950 Admission Diagnosis: Attending: JANES COREAS Current LOS: 1 Anticipated DC Date: Planned Disposition: Primary Insurance: HU[employer]NA CHOICE PPO MCR ADVANT Discharge Planning Comments: CM met with patient at bedside after explaining CM role and obtaining verbal consent. I SPOKE WITH PATIENT AND HIS NAA. PLAN IS FOR SNF AT [facility] [place] [facility]. CURRENTLY HAS [facility] BUT THINKS HE NEEDS SNF. CM TO FOLLOW AND ASSIST. Piercer Operator: Carleen Hawkins DCPIA - Discharge Planning Initial Assessment Updated by [id number]: Carleen Hawkins on 06/07/19 3:13 pm * Is the patient Alert and Oriented? Yes * PCP [facility] * Pharmacy [facility] * Preadmission Environment Home with Family * ADLs Independent * Other Equipment WALKER * List name and contact numbers for known caregivers / representatives who currently or will assist patient after discharge: VALENTINO JACOME, * Community resources currently utilized Home Health * Please name any agencies selected above. [facility] [place] * Additional services required to return to the preadmission environment? No * Can the patient safely return to the preadmission environment? Yes * Has this patient been hospitalized within the prior 30 days at any hospital? No Coverage Notice Reviewer: [id number] Derik Hawkins Notice Issued Date-Time: 06/07/2019 15:13 Notice Type: Patient Choice Letter Notice Delivered To: Family Member Relationship to Patient: Spouse Crab Butcher Name: NAA Delivery Method: HAND - Hand Delivered Em Days: Prior Verbal Notification: Recipient Understood Notice: Yes Recipient Signature: Yes Med Rec Note Co-signed by Attending: Coverage Notice Comment: [facility] Reviewer: [id number] Derik Valdez Notice Issued Date-Time: 06/10/2019 17:25 Notice Type: Patient Choice Letter Notice Delivered To: Patient Relationship to Patient: Crab Butcher Name: Delivery Method: HAND - Hand Delivered Em Days: Prior Verbal Notification: Recipient Understood Notice: Yes Recipient Signature: Yes Med Rec Note Co-signed by Attending: Coverage Notice Comment: Reviewer: [id number] Derik Valdez Notice Issued Date-Time: 06/16/2019 16:45 Notice Type: IM Discharge Notice Notice Delivered To: Patient Relationship to Patient: Crab Butcher Name: Delivery Method: HAND - Hand Delivered Em Days: Prior Verbal Notification: Recipient Understood Notice: Yes Recipient Signature: Yes Med Rec Note Co-signed by Attending: Coverage Notice Comment: Last DP export: 06/16/19 9:07 a Patient Name: OSIRIS HECK Page 62885 at 1716 All edits/amendments must be made on the electronic document DICTATION DATE: 06/16/191714 FASHION STYLING INTERN: OPAL 06/16/191714 RPT#: [id number] DC DATE: STATUS: ADM IN [facility] [address] [place] [address] END OF REPORT
--- NOTE | 2019-06-16 17:31 | MORECARE ---
CASE MANAGEMENT DISCHARGE SUMMARY PATIENT: OSIRIS HECK UNIT: [id number] ADM DATE: 06/06/19 AGE: 68 : 48 SEX: M ROOM/BED: D.2101 AUTHOR: APRIL,DOC PHYSICIAN: REFERRING PHYSICIAN: JANES CARREON MD DATE OF SERVICE: 06/16/19 Discharge Plan Patient Name: OSIRIS HECK Facility: [facility]:[place] : 1950 Planned Disposition: [facility] Facility Anticipated Discharge Date: 06/17/19 Discharge Date: Expected LOS: 11 Initial Reviewer: [id number] Initial Review Date: 06/07/2019 Generated: 06/16/19 6:31 pm Comments DCP- Discharge Planning Updated by [id number]: Antonio Valdez on 06/16/19 4:[address] Patient Name: OSIRIS HECK Encounter No: [id number] : 1950 Primary Insurance: HUMANA CHOICE PPO MCR ADVANT Anticipated DC Date: 06-17-2019 Planned Disposition: [facility] Facility External Planned Provider: [facility], MEDICARE REHAB BED DCP follow-up note: CM RECEIVED CALL FROM ROSALINDA OF [facility], SHE HAS RECEIVED INSURANCE APPROVAL AND WILL ACCEPT PT IN THE MORNING. CM NOTIFIED DR. BUSTILLO. CM NOTIFED PT IN ROOM WHO IS WILLING FOR REHAB AND WANTS TO GO SOON POSSIBLE. CM EXPLAINED THAT PT CAN GO IN THE MORNING. PT SATISFIED. IMPORTANT MESSAGE FROM MEDICARE PROVIDED AND EXPLAINED. CM CALLED NAA, , , THERE WAS NO ANSWER. FOR DISCHARGE 06-17-19, FAX DISCHARGE INFORMATION TO [facility] AT [phone], NURSE REPORT TO BE CALLED TO [facility] AT [phone]. PT TO TRANSPORT VIA AMBULANCE TO [facility], [address] [place] [address]. Antonio Valdez, CASE MANAGEMENT DCP- Discharge Planning Updated by [id number]: Antonio Valdez on 06/16/19 9:[address] Patient Name: OSIRIS HECK Encounter No: [id number] : 1950 Primary Insurance: HUMANA CHOICE PPO MCR ADVANT Anticipated DC Date: Planned Disposition: [facility] Facility External Planned [facility] DCP follow-up note: CM FAXED REFERRAL UPDATE TO [facility], . CM RECEIVED CALL FROM ROSALINDA OF [facility], , WHO INFORMED CM THAT SHE IS STILL WAITING ON INSURANCE AUTHORIZATION FOR REHAB SERVICES. CM WAITING INSURANCE AUTHORIZATION FOR REHAB SERVICES AT [facility]. TEJAS Mcclain MANAGEMENT DCP- Discharge Planning Updated by [email or web address]: Antonio Valdez on 06/15/19 5:[address] Patient Name: OSIRIS HECK Encounter No: [id number] : 1950 Primary Insurance: HUMANA CHOICE PPO MCR ADVANT Anticipated DC Date: Planned Disposition: [facility] Facility External Planned Provider: [facility] DCP follow-up note: CM FAXED REFERRAL UPDATE TO [facility], . CM WAITING ADMISSION DETERMINATION FROM [facility] FOR REHAB. TEJAS Mcclain DCP- Discharge Planning Updated by [email or web address]: Antonio Valdez on 06/12/19 12:[address] Patient Name: OSIRIS HECK Encounter No: [id number] : 1950 Primary Insurance: HUMANA CHOICE PPO MCR ADVANT Anticipated DC Date: Planned Disposition: [facility] Facility External Planned Provider: [facility], MEDICARE REHAB BED DCP follow-up note: CM SPOKE TO PT ON 06-10-19 AT ABOUT 1725 HOURS, DISCUSSED DENIAL BY DC BERRIOS. CM DISCUSSED OTHER CHOICES FOR REHAB. PT WOULD LIKE REHAB AT [place] IT ONLY 20 [address]ES FROM HIS HOME. PT SIGNED CHOICE. ON 06-12-19, CM CALLED [facility], , SPOKE TO ROSALINDA WHO WILL PLACE REFERRAL ON NURSES DESK FOR ADMISSION REVIEW. CM FAXED REFERRAL TO [facility], . CM WAITING ADMISSION DETERMINATION FROM [facility] FOR REHAB. TEJAS Mcclain MANAGEMENT DCP- Discharge Planning Updated by [id number]: Antonio Valdez on 06/10/19 3:[address] Patient Name: OSIRIS HECK Encounter No: [id number] : 1950 Primary Insurance: HUMANA CHOICE PPO MCR ADVANT Anticipated DC Date: Planned Disposition: [facility] Facility External Planned Provider: TO BE DETERMINED DCP follow-up note: CM RECEIVED CALL FROM [facility], THEY CANNOT MEET PT'S NEEDS DUE TO [facility]. CM TO MEET WITH PT AND FAMILY SOON POSSIBLE TO DISCUSS OTHER ASSISTED REHAB OPTIONS. Antonio Valdez CASE MANAGEMENT DCP- Discharge Planning Updated by [email or web address]: Antonio Valdez on 06/08/19 4:[address] Patient Name: OSIRIS HECK Encounter No: [id number] : 1950 Primary Insurance: HUMANA CHOICE PPO MCR ADVANT Anticipated DC Date: Planned Disposition: [facility] Facility External Planned Provider: [facility], MEDICARE REHAB BED DCP follow-up note: CM FAXED REFERRAL TO [facility] AT [phone]. CM TO FOLLOW UP WITH ADMISSIONS AT [facility] ON 06-09-19 AT [phone]. CM WAITING ADMISSION DETERMINATION FROM [facility]. TEJAS Mcclain MANAGEMENT DCP- Discharge Planning Updated by [email or web address]: Carleen Hawkins on 06/07/19 2:[address] Patient Name: OSIRIS HECK Admission Status: ER Accout number: [id number] Admission Date: 06-06-2019 : 1950 Admission Diagnosis: Attending: JANES COREAS Current LOS: 1 Anticipated DC Date: Planned Disposition: Primary Insurance: HU[employer]NA CHOICE PPO MCR ADVANT Discharge Planning Comments: CM met with patient at bedside after explaining CM role and obtaining verbal consent. I SPOKE WITH PATIENT AND HIS NAA. PLAN IS FOR SNF AT [facility] IN [facility]. CURRENTLY HAS [facility] BUT THINKS HE NEEDS SNF. CM TO FOLLOW AND ASSIST. Soapstoner: Carleen Hawkins DCPIA - Discharge Planning Initial Assessment Updated by [id number]: Carleen Hawkins on 06/07/19 3:13 pm * Is the patient Alert and Oriented? Yes * PCP [facility] * Pharmacy [facility] * Preadmission Environment Home with Family * ADLs Independent * Other Equipment WALKER * List name and contact numbers for known caregivers / representatives who currently or will assist patient after discharge: VALENTINO JACOME, * Community resources currently utilized Home Health * Please name any agencies selected above. [facility] [place] * Additional services required to return to the preadmission environment? No * Can the patient safely return to the preadmission environment? Yes * Has this patient been hospitalized within the prior 30 days at any hospital? No Coverage Notice Reviewer: [id number] Derik Hawkins Notice Issued Date-Time: 06/07/2019 15:13 Notice Type: Patient Choice Letter Notice Delivered To: Family Member Relationship to Patient: Spouse Technical Clerk Name: NAA Delivery Method: HAND - Hand Delivered Em Days: Prior Verbal Notification: Recipient Understood Notice: Yes Recipient Signature: Yes Med Rec Note Co-signed by Attending: Coverage Notice Comment: [facility] CUR[facility] Reviewer: [id number] Derik Valdez Notice Issued Date-Time: 06/10/2019 17:25 Notice Type: Patient Choice Letter Notice Delivered To: Patient Relationship to Patient: Technical Clerk Name: Delivery Method: HAND - Hand Delivered Em Days: Prior Verbal Notification: Recipient Understood Notice: Yes Recipient Signature: Yes Med Rec Note Co-signed by Attending: Coverage Notice Comment: Reviewer: [id number] Derik Valdez Notice Issued Date-Time: 06/16/2019 16:45 Notice Type: IM Discharge Notice Notice Delivered To: Patient Relationship to Patient: Technical Clerk Name: Delivery Method: HAND - Hand Delivered Em Days: Prior Verbal Notification: Recipient Understood Notice: Yes Recipient Signature: Yes Med Rec Note Co-signed by Attending: Coverage Notice Comment: Last DP export: 06/16/19 4:16 p Patient Name: OSIRIS HECK Page 13512 at 1731 All edits/amendments must be made on the electronic document DICTATION DATE: 06/16/191730 [place] MACHINE OPERATOR: OPAL 06/16/191730 RPT#: [id number] DC DATE: STATUS: ADM IN [facility] [address] [place] [address] END OF REPORT
--- NOTE | 2019-06-16 19:00 | NUR ---
CO OF PAIN AND LEG JERKING WILL GET PRN JUAN BED IS LOW AND LOCKED PT HAS CALL LIGHT IN REACH ASSISTED WITH COMFORT AT THIS TIME AND WITH INTAKE
[2019-06-16 20:00] VITALS: BP 111/56
[2019-06-17] VITALS: BP 127/82
[2019-06-17 04:00] VITALS: BP 117/77
--- NOTE | 2019-06-17 07:30 | NUR ---
REPORT RECIEVED. PT SITTING SEMI FOWLERS. RR EVEN AND UNLABORED. NO DISTRESS NOTED. PT HAS A L FA PIV THAT IS SL AND A R FA PIV THAT IS SL. BED LOCKED AND IN LOWEST POSITION, CALL LIGHT WITHIN REACH. WILL CTM
[2019-06-17 08:28] VITALS: BP 128/1
[2019-06-17] MEDS ORDERED: ELIQUIS5 MG PO ×2 (09:05→09:06)
[2019-06-17] MEDS ORDERED: LEXAPRO10 MG PO (09:06)
[2019-06-17] MEDS ORDERED: PROTONIX40 MG PO (09:07)
[2019-06-17] MEDS ORDERED: CARAFATE1 G PO (09:07)
--- NOTE | 2019-06-17 09:42 | MORECARE ---
CASE MANAGEMENT DISCHARGE SUMMARY PATIENT: OSIRIS HECK UNIT: [id number] ADM DATE: 06/06/19 AGE: 68 : 48 SEX: M ROOM/BED: D.2101 AUTHOR: MANDY CHEN PHYSICIAN: REFERRING PHYSICIAN: JANES CARREON MD DATE OF SERVICE: 06/17/19 Discharge Plan Patient Name: OSIRIS HECK Facility: [facility]:[place] : 1950 Planned Disposition: Mcfp Facility Anticipated Discharge Date: 06/17/19 Discharge Date: Expected LOS: 11 Initial Reviewer: [id number] Initial Review Date: 06/07/2019 Generated: 06/17/19 10:42 am Comments DCP- Discharge Planning Updated by [email or web address]: Antonio Valdez on 06/17/19 8:[address] Patient Name: OSIRIS HECK Encounter No: [id number] : 1950 Primary Insurance: HU[employer]NA CHOICE PPO MCR [employer]VANT Anticipated DC Date: 06-17-2019 Planned Disposition: Mcfp Facility External Planned Provider: [facility], MEDICARE REHAB BED DCP follow-up note: CM RECEIVED DISCHARGE ORDER. CM FAXED DISCHARGE INFORMATION TO [facility] AT [phone], REGISTRATION CLERK NURSE NOTIFIED. NURSE REPORT TO BE CALLED TO ROSALINDA AT [facility], . PT TO TRANSPORT VIA AMBULANCE TO [facility], [address] [place], [place] [id number]. Antonio Valdez, CASE MANAGEMENT DCP- Discharge Planning Updated by [id number]: Antonio Valdez on 06/16/19 4:[address] Patient Name: OSIRIS HECK Encounter No: [id number] : 1950 Primary Insurance: HUMANA CHOICE PPO MCR ADVANT Anticipated DC Date: 06-17-2019 Planned Disposition: Mcfp Facility External Planned Provider: [facility], MEDICARE REHAB BED DCP follow-up note: CM RECEIVED CALL FROM ROSALINDA OF [facility], SHE HAS RECEIVED INSURANCE APPROVAL AND WILL ACCEPT PT IN THE MORNING. CM NOTIFIED DR. BUSTILLO. CM NOTIFED PT IN ROOM WHO IS WILLING FOR REHAB AND WANTS TO GO SOON POSSIBLE. CM EXPLAINED THAT PT CAN GO IN THE MORNING. PT SATISFIED. IMPORTANT MESSAGE FROM MEDICARE PROVIDED AND EXPLAINED. CM CALLED NAA, , , THERE WAS NO ANSWER. FOR DISCHARGE 06-17-19, FAX DISCHARGE INFORMATION TO [facility] AT [phone], NURSE REPORT TO BE CALLED TO [facility] AT [phone]. PT TO TRANSPORT VIA AMBULANCE TO [facility], [address] [place] [address], [place] [address]. Antonio Valdez CASE MANAGEMENT DCP- Discharge Planning Updated by [id number]: Antonio Valdez on 06/16/19 9:[address] Patient Name: OSIRIS HECK Encounter No: [id number] : 1950 Primary Insurance: HUMANA CHOICE PPO MCR ADVANT Anticipated DC Date: Planned Disposition: Mcfp Facility External Planned Provider: [facility], MEDICARE REHAB BED DCP follow-up note: CM FAXED REFERRAL UPDATE TO [facility], . CM RECEIVED CALL FROM ROSALINDA OF [facility], , WHO INFORMED CM THAT SHE IS STILL WAITING ON INSURANCE AUTHORIZATION FOR REHAB SERVICES. CM WAITING INSURANCE AUTHORIZATION FOR REHAB SERVICES AT [facility]. TEAJS Mcclain DCP- Discharge Planning Updated by [id number]: Antonio Valdez on 06/15/19 5:[address] Patient Name: OSIRIS HECK Encounter No: [id number] : 1950 Primary Insurance: HUMANA CHOICE PPO MCR ADVANT Anticipated DC Date: Planned Disposition: Mcfp Facility External Planned Provider: [facility], MEDICARE REHAB BED DCP follow-up note: CM FAXED REFERRAL UPDATE TO [facility], . CM WAITING ADMISSION DETERMINATION FROM [facility] FOR REHAB. Antonio Valdez CASE MANAGEMENT DCP- Discharge Planning Updated by [id number]: Antonio Valdez on 06/12/19 12:[address] Patient Name: OSIRIS HECK Encounter No: [id number] : 1950 Primary Insurance: HUMANA CHOICE PPO MCR ADVANT Anticipated DC Date: Planned Disposition: Mcfp Facility External Planned Provider: [facility], MEDICARE REHAB BED DCP follow-up note: CM SPOKE TO PT ON 06-10-19 AT ABOUT 1725 HOURS, DISCUSSED DENIAL BY [facility]. CM DISCUSSED OTHER CHOICES FOR REHAB. PT WOULD LIKE REHAB AT [place] IT ONLY 20 [address]ES FROM HIS HOME. PT SIGNED CHOICE. ON 06-12-19, CM CALLED [facility], , SPOKE TO ROSALINDA WHO WILL PLACE REFERRAL ON NURSES DESK FOR ADMISSION REVIEW. CM FAXED REFERRAL TO [facility], . CM WAITING ADMISSION DETERMINATION FROM [facility] FOR REHAB. Antonio Valdez CASE MANAGEMENT DCP- Discharge Planning Updated by [id number]: Antonio Valdez on 06/10/19 3:[address] Patient Name: OSIRIS HECK Encounter No: [id number] : 1950 Primary Insurance: HUMANA [employer] PPO [facility] ADVANT Anticipated DC Date: Planned Disposition: Mcfp Facility External Planned Provider: TO BE DETERMINED DCP follow-up note: CM RECEIVED CALL FROM [facility], THEY CANNOT MEET PT'S NEEDS DUE TO [facility] READ[facility]. CM TO MEET WITH PT AND FAMILY SOON POSSIBLE TO DISCUSS OTHER [facility]AY REHAB OPTIONS. Antonio Valdez CASE SETH DCP- Discharge Planning Updated by [id number]: Antonio Valdez on 06/08/19 4:[address] Patient Name: OSIRIS HECK Encounter No: [id number] : 1950 Primary Insurance: [employer] PPO [facility] ADVANT Anticipated DC Date: Planned Disposition: Mcfp Facility External Planned Provider: [facility], MED[facility] REH[facility] B[facility] DCP follow-up note: CM FAXED REFERRAL TO [facility] AT [phone]. CM TO FOLLOW UP WITH ADMISSIONS AT [facility] ON 06-09-19 AT [phone]. CM WAITING ADMISSION DETERMINATION FROM [facility]. Antonio Valdez CASE MANAGEMENT DCP- Discharge Planning Updated by [id number]: Carleen Hawkins on 06/07/19 2:[address] Patient Name: OSIRIS HECK Admission Status: ER Accout number: [id number] Admission Date: 06-06-2019 : 1950 Admission Diagnosis: Attending: JANES COREAS Current LOS: 1 Anticipated DC Date: Planned Disposition: Primary Insurance: HUMANA CHOICE PPO MCR ADVANT Discharge Planning Comments: CM met with patient at bedside after explaining CM role and obtaining verbal consent. I SPOKE WITH PATIENT AND HIS NAA. PLAN IS FOR SNF AT [facility] IN [place], [facility] SIGNED. CURRENTLY HAS [facility] BUT THINKS HE NEEDS SNF. CM TO FOLLOW AND ASSIST. Therapist: Carleen Hawkins DCPIA - Discharge Planning Initial Assessment Updated by [email or web address]: Carleen Hawkins on 06/07/19 3:13 pm * Is the patient Alert and Oriented? Yes * PCP [facility] * Pharmacy [facility] * Preadmission Environment Home with Family * ADLs Independent * Other Equipment WALKER * List name and contact numbers for known caregivers / representatives who currently or will assist patient after discharge: VALENTINO JACOME, * Community resources currently utilized Home Health * Please name any agencies selected above. [facility] [place] * Additional services required to return to the preadmission environment? No * Can the patient safely return to the preadmission environment? Yes * Has this patient been hospitalized within the prior 30 days at any hospital? No Coverage Notice Reviewer: [id number] - Carleen Hawkins Notice Issued Date-Time: 06/07/2019 15:13 Notice Type: Patient Choice Letter Notice Delivered To: Family Member Relationship to Patient: Spouse Whizzer Hand Name: NAA Delivery Method: HAND - Hand Delivered Em Days: Prior Verbal Notification: Recipient Understood Notice: Yes Recipient Signature: Yes Med Rec Note Co-signed by Attending: Coverage Notice Comment: [facility] CURRENT WITH [facility] [place] Reviewer: [id number] Derik Valdez Notice Issued Date-Time: 06/10/2019 17:25 Notice Type: Patient Choice Letter Notice Delivered To: Patient Relationship to Patient: Whizzer Hand Name: Delivery Method: HAND - Hand Delivered Em Days: Prior Verbal Notification: Recipient Understood Notice: Yes Recipient Signature: Yes Med Rec Note Co-signed by Attending: Coverage Notice Comment: Reviewer: [id number] Derik Valdez Notice Issued Date-Time: 06/16/2019 16:45 Notice Type: IM Discharge Notice Notice Delivered To: Patient Relationship to Patient: Whizzer Hand Name: Delivery Method: HAND - Hand Delivered Em Days: Prior Verbal Notification: Recipient Understood Notice: Yes Recipient Signature: Yes Med Rec Note Co-signed by Attending: Coverage Notice Comment: Last DP export: 06/16/19 4:31 p Patient Name: OSIRIS HECK Page [id number] at 0942 All edits/amendments must be made on the electronic document DICTATION DATE: 06/17/19941 INSERT MOLDING OPERATOR: OPAL 06/17/19941 RPT#: [id number] DC DATE: STATUS: ADM IN [facility] [address] [place] [address] END OF REPORT
--- NOTE | 2019-06-17 09:49 | MORECARE ---
CASE MANAGEMENT DISCHARGE SUMMARY PATIENT: OSIRIS HECK UNIT: [id number] ADM DATE: 06/06/19 AGE: 68 : 48 SEX: M ROOM/BED: D.2101 AUTHOR: MANDY CHEN PHYSICIAN: REFERRING PHYSICIAN: JANES CARREON MD DATE OF SERVICE: 06/17/19 Discharge Plan Patient Name: OSIRIS HECK Facility: [facility]:[place] : 1950 Planned Disposition: Usp Facility Anticipated Discharge Date: 06/17/19 Discharge Date: Expected LOS: 11 Initial Reviewer: [id number] Initial Review Date: 06/07/2019 Generated: 06/17/19 10:49 am Comments DCP- Discharge Planning Updated by [id number]: Antonio Valdez on 06/17/19 8:[address] Patient Name: OSIRIS HECK Encounter No: [id number] : 1950 Primary Insurance: HUMANA CHOICE PPO MCR ADVANT Anticipated DC Date: 06-17-2019 Planned Disposition: Usp Facility External Planned Provider: [facility], MEDICARE REHAB BED DCP follow-up note: CM RECEIVED DISCHARGE ORDER. CM FAXED DISCHARGE INFORMATION TO [facility] AT [phone], STONEMASON APPRENTICE NURSE NOTIFIED. NURSE REPORT TO BE CALLED TO ROSALINDA AT [facility], . PT TO TRANSPORT VIA AMBULANCE TO[address] [place] [address], [address] [place] [address]. Antonio Valdez, CASE MANAGEMENT DCP- Discharge Planning Updated by [id number]: Antonio Valdez on 06/16/19 4:[address] Patient Name: OSIRIS HECK Encounter No: [id number] : 1950 Primary Insurance: HUMANA CHOICE PPO MCR ADVANT Anticipated DC Date: 06-17-2019 Planned Disposition: Usp Facility External Planned Provider: [facility], MEDICARE REHAB BED DCP follow-up note: CM RECEIVED CALL FROM ROSALINDA OF [facility], SHE HAS RECEIVED INSURANCE APPROVAL AND WILL ACCEPT PT IN THE MORNING. CM NOTIFIED DR. BUSTILLO. CM NOTIFED PT IN ROOM WHO IS WILLING FOR REHAB AND WANTS TO GO SOON POSSIBLE. CM EXPLAINED THAT PT CAN GO IN THE MORNING. PT SATISFIED. IMPORTANT MESSAGE FROM MEDICARE PROVIDED AND EXPLAINED. CM CALLED NAA, , , THERE WAS NO ANSWER. FOR DISCHARGE 06-17-19, FAX DISCHARGE INFORMATION TO [facility] AT [phone], NURSE REPORT TO BE CALLED TO [facility] AT [phone]. PT TO TRANSPORT VIA AMBULANCE TO [facility], [address] [place] [address], [place] [id number]. TEJAS Mcclain MANAGEMENT DCP- Discharge Planning Updated by [id number]: Antonio Valdez on 06/16/19 9:[address] Patient Name: OSIRIS HECK Encounter No: [id number] : 1950 Primary Insurance: HUMANA CHOICE PPO MCR ADVANT Anticipated DC Date: Planned Disposition: Usp Facility External Planned Provider: [facility], MEDICARE REHAB BED DCP follow-up note: CM FAXED REFERRAL UPDATE TO [facility], . CM RECEIVED CALL FROM ROSALINDA OF [facility], , WHO INFORMED CM THAT SHE IS STILL WAITING ON INSURANCE AUTHORIZATION FOR REHAB SERVICES. CM WAITING INSURANCE AUTHORIZATION FOR REHAB SERVICES AT [facility]. TEJAS Mcclain DCP- Discharge Planning Updated by [id number]: Antonio Valdez on 06/15/19 5:[address] Patient Name: OSIRIS HECK Encounter No: [id number] : 1950 Primary Insurance: HUMANA CHOICE PPO MCR ADVANT Anticipated DC Date: Planned Disposition: Usp Facility External Planned Provider[facility], MEDICARE REHAB BED DCP follow-up note: CM FAXED REFERRAL UPDATE TO [facility], . CM WAITING ADMISSION DETERMINATION FROM [facility] FOR REHAB. TEJAS Mcclain MANAGEMENT DCP- Discharge Planning Updated by [id number]: Antonio Valdez on 06/12/19 12:[address] Patient Name: OSIRIS HECK Encounter No: [id number] : 1950 Primary Insurance: HUMANA CHOICE PPO MCR ADVANT Anticipated DC Date: Planned Disposition: Usp Facility External Planned Provider[facility], MEDICARE REHAB BED DCP follow-up note: CM SPOKE TO PT ON 06-10-19 AT ABOUT 1725 HOURS, DISCUSSED DENIAL BY [employer] [facility]. CM DISCUSSED OTHER CHOICES FOR REHAB. PT WOULD LIKE REHAB AT [place] IT ONLY 20 [address]ES FROM HIS HOME. PT SIGNED CHOICE. ON 06-12-19, CM CALLED [facility], , SPOKE TO ROSALINDA WHO WILL PLACE REFERRAL ON NURSES DESK FOR ADMISSION REVIEW. CM FAXED REFERRAL TO [facility], . CM WAITING ADMISSION DETERMINATION FROM [facility] FOR REHAB. Antonio Valdez CASE MANAGEMENT DCP- Discharge Planning Updated by [id number]: Antonio Valdez on 06/10/19 3:[address] Patient Name: OSIRIS HECK Encounter No: [id number] : 1950 Primary Insurance: HUMANA [employer] [facility] ADVANT Anticipated DC Date: Planned Disposition: Usp Facility External Planned Provider: TO BE DETERMINED DCP follow-up note: CM RECEIVED CALL FROM [employer] [facility], THEY CANNOT MEET PT'S NEEDS DUE TO [facility] READMISS[facility]. CM TO MEET WITH PT AND FAMILY SOON POSSIBLE TO DISCUSS OTHER [facility] REHAB OPTIONS. Antonio Valdez CASE MANAGEMENT DCP- Discharge Planning Updated by [id number]: Antonio Valdez on 06/08/19 4:[address] Patient Name: OSIRIS HECK Encounter No: [id number] : 1950 Primary Insurance: [employer] [facility] ADVANT Anticipated DC Date: Planned Disposition: Usp Facility External Planned Provider: [facility], MED[facility] BED DCP follow-up note: CM FAXED REFERRAL TO [employer] [facility] AT [phone]. CM TO FOLLOW UP WITH ADMISSIONS AT [facility] ON 06-09-19 AT [phone]. CM WAITING ADMISSION DETERMINATION FROM [facility]. Antonio Valdez CASE MANAGEMENT DCP- Discharge Planning Updated by [id number]: Carleen Hawkins on 06/07/19 2:[address] Patient Name: OSIRIS HECK Admission Status: ER Accout number: [id number] Admission Date: 06-06-2019 : 1950 Admission Diagnosis: Attending: JANES COREAS Current LOS: 1 Anticipated DC Date: Planned Disposition: Primary Insurance: HUMANA CHOICE PPO [facility] ADVANT Discharge Planning Comments: CM met with patient at bedside after explaining CM role and obtaining verbal consent. I SPOKE WITH PATIENT AND HIS NAA. PLAN IS FOR SNF AT [facility] IN [place], A[place]UL[place] SIGNED. CURRENTLY HAS [facility] BUT THINKS HE NEEDS SNF. CM TO FOLLOW AND ASSIST. Technical Sales Associate: Carleen Hawkins DCPIA - Discharge Planning Initial Assessment Updated by [id number]: Carleen Hawkins on 06/07/19 3:13 pm * Is the patient Alert and Oriented? Yes * PCP [facility] * Pharmacy [facility] * Preadmission Environment Home with Family * ADLs Independent * Other Equipment WALKER * List name and contact numbers for known caregivers / representatives who currently or will assist patient after discharge: VALENTINO JACOME, * Community resources currently utilized Home Health * Please name any agencies selected above. [facility] * Additional services required to return to the preadmission environment? No * Can the patient safely return to the preadmission environment? Yes * Has this patient been hospitalized within the prior 30 days at any hospital? No Coverage Notice Reviewer: [id number] - Carleen Hawkins Notice Issued Date-Time: 06/07/2019 15:13 Notice Type: Patient Choice Letter Notice Delivered To: Family Member Relationship to Patient: Spouse Rn Birthing Name: NAA Delivery Method: HAND - Hand Delivered Em Days: Prior Verbal Notification: Recipient Understood Notice: Yes Recipient Signature: Yes Med Rec Note Co-signed by Attending: Coverage Notice Comment: [facility] CURRENT WITH [facility] IN [facility] Reviewer: [id number] Derik Valdez Notice Issued Date-Time: 06/16/2019 16:45 Notice Type: IM Discharge Notice Notice Delivered To: Patient Relationship to Patient: Rn Birthing Name: Delivery Method: HAND - Hand Delivered Em Days: Prior Verbal Notification: Recipient Understood Notice: Yes Recipient Signature: Yes Med Rec Note Co-signed by Attending: Coverage Notice Comment: Reviewer: [id number] Derik Valdez Notice Issued Date-Time: 06/10/2019 17:25 Notice Type: Patient Choice Letter Notice Delivered To: Patient Relationship to Patient: Rn Birthing Name: Delivery Method: HAND - Hand Delivered Em Days: Prior Verbal Notification: Recipient Understood Notice: Yes Recipient Signature: Yes Med Rec Note Co-signed by Attending: Coverage Notice Comment: Last DP export: 06/17/19 8:42 a Patient Name: OSIRIS HECK Page 21715 at 0949 All edits/amendments must be made on the electronic document DICTATION DATE: 06/17/19947 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
--- NOTE | 2019-06-17 10:20 | NUR ---
UPON ADMIT, PATIENT HAS NOT HAD A FLU SHOT. WHEN QUESTIONED HE WANTS ONE.
--- NOTE | 2019-06-17 12:17 | NUR ---
REPORT CALLED TO [facility]. [facility] CALLED ABOUT TRANSPORT, THEY SAID IT WOULD BE 45MINS TO AN HOUR BEFORE THERE HERE. WILL CTM
[2019-06-17 12:57] VITALS: BP 106/65
--- NOTE | 2019-06-17 13:22 | NUR ---
[facility] HERE TO TRANSPORT PT. PIV REMOVED CATH TIP INTACT X2. DC PAPERWORK GONE OVER AND SIGNED ALL QUESTIONS ANSWERED. TELEMETRY REMOVED AND RETURNED TO D[facility]ER. ALL VALUBLES REMOVED FROM ROOM AT THIS TIME.
--- NOTE | 2019-06-17 13:58 | NUR ---
I have reviewed this patient and I concur with the Shift Assessment completed by the Licensed Practical Nurse today this shift.
--- NOTE | 2019-06-17 16:59 | NUR ---
OT NOTE: CONT TO C/O PAIN IN B KNEES. ABLE TO WASH FACE AND HANDS WITH CLOTH AND SET UP; MOD ASSIST WITH DONNING GOWN; MAX ASSIST TO DEVANTE SOCKS; BED MOB TO EOB WITH MOD ASSIST; SITTING BALANCE IS FAIR; UE AND LE EXS WHILE ON EOB. PT REPORTING INCREASED PAIN TODAY. UNABLE TO PERFORM LE EXS WELL PREVIOUS DAY. SANDRA KAMARA,OTR/L
--- NOTE | 2019-06-17 18:34 | NUR ---
OT NOTE: PT WORDS WERE UNINTELLIGIBLE. GRAFF NOTIFIED NIURSING. NURSING STATED IT WAS DUE TO MEDICATION. PT COMPLETED SUPINE TO SIT WITH MOD A X2. PT HAS ONGOING PAIN IN LE. PT COMPLETED EOB SITTING WITH SBA. PT COMPLETED BUE AROM EXS. THANK YOU,DAJUAN STAHL
== END 2019-06-17 14:33 | DRG 253 ==
LOC: D.ER 21:56 → EDBD 21:56 → D.M2 06-06 00:50
PROVIDERS: Family Medicine; General Practice; Internal Medicine Hematology & Oncology; ADMIT Family Medicine Adult Medicine; ATTEND Family Medicine Adult Medicine
PROC: 06H03DZ Insertion of Intraluminal Device into Inferior Vena Cava, Percutaneous Approach (ICD-10-PCS; principal; 2019-06-08 11:00)
DX: I82.412 Acute embolism and thrombosis of left femoral vein (principal); L03.116 Cellulitis of left lower limb; N17.9 Acute kidney failure, unspecified; E87.1 Hypo-osmolality and hyponatremia; I82.432 Acute embolism and thrombosis of left popliteal vein; M10.9 Gout, unspecified; I10 Essential (primary) hypertension; D64.9 Anemia, unspecified; M71.21 Synovial cyst of popliteal space [Baker], right knee; F32.9 Major depressive disorder, single episode, unspecified; Z86.73 Personal history of transient ischemic attack (TIA), and cerebral infarction without residual deficits

== ENCOUNTER → 2019-12-16 12:31 | Outpatient (CLI) | payer MEDICARE ==
[2019-06-08 10:25] VITALS: BMI 31.6
[~2019-12-16 12:31] MED LIST: CARAFATE1 G PO; ELIQUIS5 MG PO; LEXAPRO10 MG PO; MIRALAX17 GM PO; PLAVIX75 MG PO; PROTONIX40 MG PO; ZYLOPRIM100 MG PO; [UNRECOGNIZED DRUG - REMARK]
== END | disposition home or self-care (01) ==
LOC: D.US 10-08 11:00
PROVIDERS: ATTEND General Practice
DX: I82.403 Acute embolism and thrombosis of unspecified deep veins of lower extremity, bilateral (principal)